=== PATIENT | male | born 2000 | race Caucasian/White ===

== ENCOUNTER → 2019-08-15 10:06 | Outpatient (BNVA) | payer MEDICAID, SELFPAY | PROVIDERS: Family Provider Nurse Practitioner Family; PCP Nurse Practitioner Family; Visit Provider Emergency Medicine | DX: S91.312A Laceration without foreign body, left foot, initial encounter (principal); X58.XXXA Exposure to other specified factors, initial encounter | CPT/HCPCS: 73630 ==

== ENCOUNTER → 2019-12-09 16:52 | Outpatient (BNVA) | payer MEDICAID, SELFPAY | PROVIDERS: Family Provider Nurse Practitioner Family; PCP Nurse Practitioner Family; Visit Provider Emergency Medicine | DX: R39.198 Other difficulties with micturition (principal); R10.9 Unspecified abdominal pain; R31.9 Hematuria, unspecified; R11.0 Nausea | CPT/HCPCS: 81000 ==

== ENCOUNTER → 2020-05-15 10:24 | Outpatient (BNVA) | payer MEDICAID, SELFPAY | PROVIDERS: Family Provider Nurse Practitioner Family; PCP Nurse Practitioner Family; Visit Provider Nurse Practitioner | DX: J06.9 Acute upper respiratory infection, unspecified; R68.89 Other general symptoms and signs; L03.114 Cellulitis of left upper limb | CPT/HCPCS: 87400 ==

== ENCOUNTER 2020-07-07 17:09 | Emergency (ER) | payer MEDICAID, SELFPAY ==
[2020-07-07] VITALS (7 sets, daily range): BP systolic 103–177; BP diastolic 77–98; PULSE 76–83; RESP 15–18; TEMP 36.3; O2SAT 93–98; BMI 33.5
--- NOTE | 2020-07-07 17:51 | CTR_ITS ---
PROCEDURE INFORMATION: Exam: CT Abdomen And Pelvis With Contrast Exam date and time: 07/07/2020 6:04 PM Age: 19 years old Clinical indication: Nausea and vomiting and other: Diarrhea; Abdominal pain; Localized; Right lower quadrant (rlq); Additional info: Rlq pain TECHNIQUE: Imaging protocol: Computed tomography of the abdomen and pelvis with contrast. Radiation optimization: All CT scans at this facility use at least one of these dose optimization techniques: automated exposure control; mA and/or kV adjustment per patient size (includes targeted exams where dose is matched to clinical indication); or iterative reconstruction. Contrast material: OMNI 300; Contrast volume: 95 ml; Contrast route: INTRAVENOUS (IV); COMPARISON: No relevant prior studies available. RADIATION DOSE METRICS: Total DLP (mGy-cm): 1562.6 FINDINGS: Liver: Normal. No mass. Gallbladder and bile ducts: Normal. No calcified stones. No ductal dilation. Pancreas: Normal. No ductal dilation. Spleen: Normal. No splenomegaly. Adrenal glands: Normal. No mass. Kidneys and ureters: Normal. No hydronephrosis. Stomach and bowel: No inflammatory bowel wall thickening. No features of bowel obstruction or perforation. Moderate fecal volume. Appendix: No evidence of appendicitis. Intraperitoneal space: Unremarkable. No free air. No significant fluid collection. Vasculature: Unremarkable. No abdominal aortic aneurysm. Lymph nodes: Unremarkable. No enlarged lymph nodes. Urinary bladder: Unremarkable as visualized. Reproductive: Unremarkable as visualized. Bones/joints: Unremarkable. No acute fracture. Soft tissues: Unremarkable. CT/CT abdomen pelvis w con* [id number] IMPRESSION: No acute pathology in the abdomen or pelvis identified. Radiation Dose CTDIVOL = (mGy): DLP = 1562.6 (mGy-cm)
[2020-07-07] MEDS: morphine 4 mg/mL SDV 1 mL IVP (18:46)
[2020-07-07] MEDS: ondansetron 2 mg/ML SDV 2 mL 4 MG IVP (18:46)
[2020-07-07] MEDS: iohexol 300 mg/mL 100 mL Btl IV (18:54)
[2020-07-07 19:06] LABS: Basophils # 0.1 10^3/uL (0.0-0.1); Basophils % 0.8 %; Eosinophils # 0.3 10^3/uL (0.0-0.8); Eosinophils % 4.2 %; Hematocrit 43.1 % (42.0-52.0); Hemoglobin 14.5 g/dL (11.7-16.6); Lymphocytes # 2.6 10^3/uL (0.8-4.8); Lymphocytes % 38.8 %; Mean Corpuscular HGB Conc 33.6 g/dL (30.0-36.0); Mean Corpuscular Hemoglobin 29.7 pg (28.0-34.0); Mean Corpuscular Volume 88.1 fL (80-94); Monocytes % 15.5 %; Neutrophils # 2.68 10^3/uL (1.8-7.7); Neutrophils % 40.5 %; Nucleated Red Blood Cells % 0 %; Platelet Count 335 10^3/cmm (130-400); Red Blood Count 4.89 10^6/uL (4.1-5.3); Red Cell Distribution Width 12.2 % (12.1-15.1); White Blood Count 6.6 10^3/uL (4.0-10.0)
[2020-07-07] MEDS: fentaNYL 50 mcg/mL INJ 2mL 100 MCG IVP (19:21)
[2020-07-07 19:26] LABS: Lactate (Lactic Acid level) 1.1 mmol/L (0.5-2.2)
[2020-07-07 19:38] LABS: Alanine Aminotransferase 51 U/L (0-41); Albumin Level 4.7 g/dL (3.5-5.2); Alkaline Phosphatase 57 IU/L (40-130); Anion Gap 13.8 (5-19); Aspartate Amino Transferase 26 U/L (0-40); Blood Urea Nitrogen 14 mg/dL (6-20); C Reactive Protein 7.5 mg/L (0.0-4.9); Calcium 9.2 mg/dL (8.5-10.5); Carbon Dioxide 24 mmol/L (22-29); Chloride 102 mmol/L (98-107); Globulin 2.7 g/dL (1.3-4.6); Glomerular Filtration Rate 170.1 mL/min (90-130); Glucose 80 mg/dL (65-115); Lipase 17 U/L (13-60); Osmolality Calculated 281 mOsm/kg (285-295); Potassium 3.8 mmol/L (3.5-5.1); Sodium 136 mmol/L (136-145); Total Bilirubin 0.3 mg/dL (0.15-1.2); Total Protein 7.4 g/dL (6.6-8.7)
--- NOTE | 2020-07-07 20:02 | ED_ITS ---
HPI - Abdominal Pain General: Chief Complaint: Abdominal Pain Stated Complaint: abd pain Source: patient Mode of arrival: ambulatory Limitations: no limitations History of Present Illness: HPI narrative: 19-year-old male who presents to the emergency department with right lower quadrant pain of about 4 days duration. He denies any fever, denies any change in his appetite. He does admits to profuse diarrhea. He went to his primary care provider's office who was concerned that he may have acute appendicitis and so sent him here to be evaluated. MD elicited complaint: abdominal pain Pertinent past history: none Onset (ago): day(s) (4) Pain Consistency: constant Location: RLQ Severity: severe Quality: stabbing Radiation: none Migration to: no migration Exacerbating factors: movement Relieving factors: nothing Associated Symptoms: Reports change in bowel habits, change in stool character and diarrhea; Denies anorexia, belching, bloating, chills, coffee ground emesis, constipation, GI cramping, dyspepsia, dysuria, excessive flatus, fever(s), heartburn, hematochezia, hematuria, hematemesis, fecal incontinence, loose stools, melena, nausea, poor appetite, syncope and vomiting Review of Systems General: Reports: 10 or more systems reviewed and unremarkable except in HPI and below Const: Denies: fever(s) or chills Eyes: Denies: change in vision or blurry vision ENMT: Denies: throat pain, enlarged tonsils, odynophagia, hoarseness, mouth pain or swelling of lips/tongue Card: Denies: syncope Resp: Denies: dyspnea, productive cough or non-productive cough GI: Reports: diarrhea, change in bowel habits and change in stool character; Denies: nausea, vomiting, hematemesis, coffee ground emesis, heartburn, constipation, bloating, GI cramping, belching, excessive flatus, fecal incontinence, hematochezia or melena : Denies: dysuria or hematuria Musc: Denies: neck pain, back pain or extremity swelling Skin/Breast: Denies: rash, pruritus or erythema Neuro: Denies: headache(s), numbness in extremities or weakness in extremities Endo: Denies: polyuria, polydipsia or tired all the time PFSH ED PFSH: Medical History ADHD GERD with apnea Major depression Mild intermittent asthma with (acute) exacerbation Surgical History No pertinent past surgical history Social History Smoking and tobacco status: current every day smoker cigarettes Packs smoked per day: 1 Quit status (tobacco): not considering quitting Second hand smoke exposure: Yes Alcohol intake: never Desire information about alcohol rehabilitation?: No Substance/Drug Use: never Desire information about substance/drug rehabilitation?: No History of recent travel: No Current gender identity: Male Physical Exam Const: COMMON NORMALS: no acute distress, average body habitus, patient oriented x3, no limitations, healthy appearing, alert and well nourished Neck/C-Spine: COMMON NORMALS: no meningeal signs and no JVD Resp: COMMON NORMALS: normal respiratory effort, No retractions, No use of accessory muscles, clear to auscultation bilaterally and percussion normal AUSCULTATION: clear to auscultation bilaterally PERCUSSION: percussion normal Cardio: COMMON NORMALS: no JVD, regular rate, regular rhythm, S1 normal heart sound present, S2 normal heart sound present, No gallops present (Cardio), No clicks present (Cardio), No murmurs present (Cardio), No rub (Cardio) and Peripheral pulses 2+ throughout RATE: regular rate RHYTHM: regular rhythm HEART SOUNDS: S1 normal heart sound present and S2 normal heart sound present PERIPHERAL PULSES: Peripheral pulses 2+ throughout GI: COMMON NORMALS: Normal to inspection, nondistended, normoactive bowel sounds present, Soft to palpation, No hepatosplenomegaly present, no masses and no bruits PALPATION: Yes Soft to palpation, Yes Tenderness to palpation present (GI) Details: RLQ, Yes Guarding due to palpation present (GI) in the RLQ, Yes No hepatosplenomegaly present and No Rebound tenderness present Extremity: COMMON NORMALS: normal to inspection, full ROM, capillary refill normal, no calf tenderness and no pedal edema Neuro: COMMON NORMALS: patient oriented x3 SENSORIUM/ORIENTATION: Yes alert MENINGEAL SIGNS: Yes no meningeal signs Course Reevaluation(s): Reevaluation #1: Discussed his lab and imaging findings with him. Negative for acute findings. We will treat him as a case of acute gastroenteritis. He voiced understanding and is in agreement with the plan. He is however advised to return if his symptoms get any worse. Time: 20:03 Vital Signs: Vital signs: Vital Signs Temperature 97.3 F L 07/07/20 17:45 Pulse Rate 76 07/07/20 20:47 Respiratory Rate 16 07/07/20 19:21 Blood Pressure 134/78 07/07/20 20:47 Pulse Oximetry 97 07/07/20 20:47 MDM - Abdominal Pain MDM Narrative: Medical decision making narrative: 22-year-old male with right lower quadrant pain. There was concern for acute appendicitis, however CT scan was negative for any acute findings. White cell count was also normal. CRP was very minimally elevated. He is discharged home on conservative measures. Medical Records: Attestation: I reviewed the patient's medical records. Lab Data: Attestation: I reviewed the patient's lab results. Labs: Lab Results 07/07/20 07/07/20 07/07/20 Range/Units 18:18 18:18 18:18 WBC 6.6 (4.0-10.0) 10^3/ uL RBC 4.89 (4.1-5.3) 10^6/u L Hgb 14.5 (11.7-16.6) g/dL Hct 43.1 (42.0-52.0) % MCV 88.1 (80-94) fL MCH 29.7 (28.0-34.0) pg MCHC 33.6 (30.0-36.0) g/dL RDW 12.2 (12.1-15.1) % Plt Count 335 (130-400) 10^3/c mm MPV 9.0 (7.4-10.4) fL Neut % (Auto) 40.5 % Lymph % (Auto) 38.8 % [place] % (Auto) 15.5 % Eos % (Auto) 4.2 % Baso % (Auto) 0.8 % Neut # (Auto) 2.68 (1.8-7.7) 10^3/u L Lymph # (Auto) 2.6 (0.8-4.8) 10^3/u L [place] # (Auto) 1.0 H (0.2-0.9) 10^3/u L Eos # (Auto) 0.3 (0.0-0.8) 10^3/u L Baso # (Auto) 0.1 (0.0-0.1) 10^3/u L Nucleated RBC % (a uto) 0 % Nucleated RBCs # 0.0 /100WBC Sodium 136 (136-145) mmol/L Potassium 3.8 (3.5-5.1) mmol/L Chloride 102 (98-107) mmol/L Carbon Dioxide 24 (22-29) mmol/L Anion Gap 13.8 (5-19) BUN 14 (6-20) mg/dL Creatinine 0.6 L (0.7-1.2) mg/dL GFR Calculation 170.1 H (90-130) mL/min Glucose 80 (65-115) mg/dL Calculated Osmolal ity 281 L (285-295) mOsm/k g Lactate 1.1 (0.5-2.2) mmol/L Calcium 9.2 (8.5-10.5) mg/dL Total Bilirubin 0.3 (0.15-1.2) mg/dL AST 26 (0-40) U/L ALT 51 H (0-41) U/L Alkaline Phosphata se 57 (40-130) IU/L C-Reactive Protein 7.5 H (0.0-4.9) mg/L Total Protein 7.4 (6.6-8.7) g/dL Albumin 4.7 (3.5-5.2) g/dL Globulin 2.7 (1.3-4.6) g/dL Lipase 17 (13-60) U/L Urine Color (Yellow) Urine Appearance (CLEAR) Urine pH (5-7) Ur Specific Gravit y (1.005-1.030) Urine Protein (Negative) Urine Glucose (UA) (Normal) Urine Ketones (Negative) Urine Blood (Negative) Urine Nitrate (Negative) Urine Bilirubin (Negative) Urine Urobilinogen (Negative) mg/dL Ur Leukocyte Fransisca ase (Negative) Urine RBC (0-2) /hpf Urine WBC (0-5) /hpf Ur Squamous Epith Cells (0-5) /hpf Amorphous Sediment Urine Bacteria (NONE) /hpf 02/25/21 Range/Units 19:44 WBC (4.0-10.0) 10^3/ uL RBC (4.1-5.3) 10^6/u L Hgb (11.7-16.6) g/dL Hct (42.0-52.0) % MCV (80-94) fL MCH (28.0-34.0) pg MCHC (30.0-36.0) g/dL RDW (12.1-15.1) % Plt Count (130-400) 10^3/c mm MPV (7.4-10.4) fL Neut % (Auto) % Lymph % (Auto) % [place] % (Auto) % Eos % (Auto) % Baso % (Auto) % Neut # (Auto) (1.8-7.7) 10^3/u L Lymph # (Auto) (0.8-4.8) 10^3/u L [place] # (Auto) (0.2-0.9) 10^3/u L Eos # (Auto) (0.0-0.8) 10^3/u L Baso # (Auto) (0.0-0.1) 10^3/u L Nucleated RBC % (a uto) % Nucleated RBCs # /100WBC Sodium (136-145) mmol/L Potassium (3.5-5.1) mmol/L Chloride (98-107) mmol/L Carbon Dioxide (22-29) mmol/L Anion Gap (5-19) BUN (6-20) mg/dL Creatinine (0.7-1.2) mg/dL GFR Calculation (90-130) mL/min Glucose (65-115) mg/dL Calculated Osmolal ity (285-295) mOsm/k g Lactate (0.5-2.2) mmol/L Calcium (8.5-10.5) mg/dL Total Bilirubin (0.15-1.2) mg/dL AST (0-40) U/L ALT (0-41) U/L Alkaline Phosphata se (40-130) IU/L C-Reactive Protein (0.0-4.9) mg/L Total Protein (6.6-8.7) g/dL Albumin (3.5-5.2) g/dL Globulin (1.3-4.6) g/dL Lipase (13-60) U/L Urine Color Yellow (Yellow) Urine Appearance Clear (CLEAR) Urine pH 7 (5-7) Ur Specific Gravit y 1.010 (1.005-1.030) Urine Protein Neg (Negative) Urine Glucose (UA) Norm (Normal) Urine Ketones Negative (Negative) Urine Blood Neg (Negative) Urine Nitrate Negative (Negative) Urine Bilirubin Neg (Negative) Urine Urobilinogen Norm (Negative) mg/dL Ur Leukocyte Fransisca ase Negative (Negative) Urine RBC None (0-2) /hpf Urine WBC None (0-5) /hpf Ur Squamous Epith Cells None (0-5) /hpf Amorphous Sediment Not Reportable Urine Bacteria None (NONE) /hpf Imaging Data ^: CT Abd/Pel: Attestation: I personally reviewed and interpreted this imaging study as follows: Radiologist's impression: [facility] [address] [address] Scan Report Signed Patient: Promise Ordonez #: [id number] : 2000Acct#:[id number] Age/Sex: 19 M Date: 07/07/20 Loc: ERRoom/Bed: Attending Dr: Ordering Provider/Ordering MD: Seferino Cast MD, [facility] Date of Service: 07/07/20 Procedure(s): CT abdomen pelvis w con* [id number] Accession Number(s): [id number] Report Number: [id number] PROCEDURE INFORMATION: Exam: CT Abdomen And Pelvis With Contrast Exam date and time: 07/07/2020 6:04 PM Age: 19 years old Clinical indication: Nausea and vomiting and other: Diarrhea; Abdominal pain; Localized; Right lower quadrant (rlq); Additional info: Rlq pain TECHNIQUE: Imaging protocol: Computed tomography of the abdomen and pelvis with contrast. Radiation optimization: All CT scans at this facility use at least one of these dose optimization techniques: automated exposure control; mA and/or kV adjustment per patient size (includes targeted exams where dose is matched to clinical indication); or iterative reconstruction. Contrast material: OMNI 300; Contrast volume: 95 ml; Contrast route: INTRAVENOUS (IV); COMPARISON: No relevant prior studies available. RADIATION DOSE METRICS: Total DLP (mGy-cm): 1562.6 FINDINGS: Liver: Normal. No mass. Gallbladder and bile ducts: Normal. No calcified stones. No ductal dilation. Pancreas: Normal. No ductal dilation. Spleen: Normal. No splenomegaly. Adrenal glands: Normal. No mass. Kidneys and ureters: Normal. No hydronephrosis. Stomach and bowel: No inflammatory bowel wall thickening. No features of bowel obstruction or perforation. Moderate fecal volume. Appendix: No evidence of appendicitis. Intraperitoneal space: Unremarkable. No free air. No significant fluid collection. Vasculature: Unremarkable. No abdominal aortic aneurysm. Lymph nodes: Unremarkable. No enlarged lymph nodes. Urinary bladder: Unremarkable as visualized. Reproductive: Unremarkable as visualized. Bones/joints: Unremarkable. No acute fracture. Soft tissues: Unremarkable. CT/CT abdomen pelvis w con* [id number] IMPRESSION: No acute pathology in the abdomen or pelvis identified. Radiation Dose CTDIVOL = (mGy): DLP = 1562.6 (mGy-cm) Dictated By:Bradley Fritz Signed By:Elaine Fritz Date/Time:07/07/201911 DD/ 11 Discharge Plan Discharge Patient Disposition: Home Clinical Impression: Gastroenteritis Condition: Stable Prescriptions: [place] 5-325 mg tablet 1 tab PO Q8H Qty: 6 RF: 0 Continued omeprazole 20 mg capsule,delayed release(DR/EC) 20 mg PO DAILY 30 Days Qty: 30 RF: 2 buspirone 5 mg tablet 5 mg PO BID RF: 0 cetirizine 10 mg tablet,chewable 10 mg PO DAILY PRN (Reason: allergy symptoms) Qty: 30 RF: 3 albuterol sulfate [ProAir HFA] 90 mcg/actuation HFA aerosol inhaler See Rx Instructions .ROUTE .COMPLEX Qty: 8.5 RF: 2 sertraline 25 mg tablet 25 mg PO DAILY 30 Days Qty: 30 RF: 0 Anti Nausea Sublingual See Rx Instructions .ROUTE .COMPLEX RF: 0 naproxen 500 mg Tablet 500 mg PO BID RF: 0 lisinopril 10 mg tablet 10 mg PO DAILY@1000 RF: 0 Rexulti 0.5 mg tablet 0.5 mg PO BEDTIME RF: 0 Discharge Orders: Discharge ED (Routine); Ordered 07/07/20 Ordered By: Seferino Cast Referrals: Shiraz Barragan PA [Primary Care Provider] - 1-3 days Discharge Diet: Usual diet Discharge Activity: Increase activity as tolerated Patient Instructions: Gastroenteritis (ED), Opioid Safety Activity Restrictions/Additional Instructions: Return for any new or worsening symptoms. Follow-up with your primary care provider within 3 days. Most diarrhea resolves without intervention, so expect your symptoms to improve within the next few days. Take the pain medicine as required for pain. Coding Level of Care Code ED [employer] for [facility]
[2020-07-07 20:32] LABS: Urine Color Yellow (Yellow)
[2020-07-07 20:33] LABS: Bilirubin Urine Neg (Negative); Blood Urine Neg (Negative); Glucose Urine UA Norm (Normal); Ketones Urine Negative (Negative); Leukocyte Esterase Urine Negative (Negative); Nitrate Urine Negative (Negative); Protein Urine Neg (Negative); Urine Appearance Clear (CLEAR); Urobilinogen Urine Norm (Negative); pH Urine 7 (5-7)
== END 2020-07-07 20:49 | disposition home or self-care (01) ==
PROVIDERS: Physician Assistant; Emergency Provider Family Medicine; PCP Emergency Medicine
DX: K52.9 Noninfective gastroenteritis and colitis, unspecified (principal); F17.210 Nicotine dependence, cigarettes, uncomplicated
CPT/HCPCS: 74177; 80053; 81001; 83605; 83690; 85025; 86140; 96374; 96375; 99283; J2270; J2405; J3010; Q9967

== ENCOUNTER → 2020-07-17 14:39 | Outpatient (BNVA) | payer MEDICAID, SELFPAY | PROVIDERS: PCP Emergency Medicine; Visit Provider Nurse Practitioner Family | DX: I10 Essential (primary) hypertension (principal); F41.9 Anxiety disorder, unspecified; R25.2 Cramp and spasm | CPT/HCPCS: 81000; 82043 ==

== ENCOUNTER 2020-08-07 14:33 | Emergency (ER) | payer MEDICAID, SELFPAY ==
[2020-08-07 15:05] VITALS: BP 160/75; PULSE 89; RESP 18; TEMP 36.9; O2SAT 98; BMI 33.5
--- NOTE | 2020-08-07 15:18 | ED_ITS ---
HPI - Male Genitourinary General: Chief complaint: Urogenital-Male Stated complaint: swelling in groin Time Seen by Provider: 08/07/20 14:44 PFS ED PFSH: Medical History ADHD GERD with apnea Major depression Mild intermittent asthma with (acute) exacerbation Surgical History No pertinent past surgical history Social History Smoking and tobacco status: current every day smoker cigarettes Packs smoked per day: 1 Quit status (tobacco): not considering quitting Second hand smoke exposure: Yes Alcohol intake: never Desire information about alcohol rehabilitation?: No Desire information about substance/drug rehabilitation?: No History of recent travel: No Current gender identity: Male Course Vital Signs: Vital signs: Vital Signs Temperature 98.5 F 08/07/20 15:05 Pulse Rate 89 08/07/20 15:05 Respiratory Rate 18 08/07/20 15:05 Blood Pressure 160/75 08/07/20 15:05 Pulse Oximetry 98 08/07/20 15:05 Discharge Plan Discharge Prescriptions: No Action omeprazole 20 mg capsule,delayed release(DR/EC) 20 mg PO DAILY 30 Days Qty: 30 RF: 2 buspirone 5 mg tablet 5 mg PO BID RF: 0 lisinopril 10 mg tablet 10 mg PO DAILY@1000 Qty: 90 RF: 0 sertraline 50 mg tablet 50 mg PO DAILY Qty: 90 RF: 0 Rexulti 0.5 mg tablet 0.5 mg PO BEDTIME Qty: 30 RF: 0 chlorzoxazone 500 mg tablet 500 mg PO TID 10 Days Qty: 30 RF: 0 acetaminophen-codeine 300-30 mg tablet 1 tab PO Q6H PRN (Reason: pain) Qty: 24 RF: 0 hydrocodone-acetaminophen 7.5-325 mg tablet 1 tab PO Q4H PRN (Reason: pain) 5 Days Qty: 20 RF: 0 cetirizine 10 mg tablet,chewable 10 mg PO DAILY PRN (Reason: allergy symptoms) Qty: 30 RF: 3 albuterol sulfate [ProAir HFA] 90 mcg/actuation HFA aerosol inhaler See Rx Instructions .ROUTE .COMPLEX Qty: 8.5 RF: 2 Anti Nausea Sublingual See Rx Instructions .ROUTE .COMPLEX RF: 0 naproxen 500 mg Tablet 500 mg PO BID RF: 0 Coding Level of Care Code ED [facility] for [facility]
--- NOTE | 2020-08-07 15:19 | ED_ITS ---
Documented by User: BABITA Tovar 08/09/20 07:07 HPI - Abdominal Pain General: Chief Complaint: Urogenital-Male Stated Complaint: swelling in groin Time Seen by Provider: 08/07/20 14:44 Source: patient Mode of arrival: ambulatory Limitations: no limitations History of Present Illness: HPI narrative: Patient is a 19-year-old male who presents to ED today with a complaint of bilateral groin pain and swelling. Patient states pain initially began last Saturday after lifting something heavy at work. Patient tells me he heard a pop in his lower groin and abdomen and has been having pain since. Patient states he has received evaluation in [place] as well as at [facility] clinic in [place] by Shiraz Barragan PA-C twice. Patient states pain continues to worsen. He has had intermittent episodes of vomiting that he attributes to pain. Patient states he is still able to defecate. He is passing gas. No fevers. He has an appointment with general surgery for tomorrow. MD elicited complaint: abdominal pain Onset (ago): day(s) Pain Consistency: constant Location: Groin Severity: severe Quality: sharp Radiation: none Migration to: no migration Exacerbating factors: movement and other Relieving factors: nothing Associated Symptoms: Reports change in stool character, nausea and vomiting; Denies chills, dysuria, hematochezia, hematemesis and melena Review of Systems Const: Denies: fever(s), chills, body aches, fatigue or malaise Card: Denies: chest pain Resp: Denies: dyspnea GI: Reports: abdominal pain, nausea, vomiting and change in stool character; Denies: hematemesis, rectal pain, hematochezia or melena : Reports: genital pain and scrotal swelling; Denies: flank pain, difficulty urinating, dysuria, urinary frequency, urinary urgency or urinary hesitancy Musc: Denies: neck pain or back pain Skin/Breast: Denies: rash Neuro: Denies: headache(s) [facility] ED PFSH: Medical History ADHD GERD with apnea Major depression Mild intermittent asthma with (acute) exacerbation Surgical History No pertinent past surgical history Social History Smoking and tobacco status: current every day smoker cigarettes Packs smoked per day: 1 Quit status (tobacco): not considering quitting Second hand smoke exposure: Yes Alcohol intake: never Desire information about alcohol rehabilitation?: No Desire information about substance/drug rehabilitation?: No History of recent travel: No Current gender identity: Male Physical Exam Const: COMMON NORMALS: no acute distress, patient oriented x3, no limitations and alert GENERAL APPEARANCE: cooperative ORIENTATION/CONSCIOUSNESS: Yes awake, Yes oriented to person, Yes oriented to place and Yes oriented to time Resp: COMMON NORMALS: normal respiratory effort and clear to auscultation bilaterally AUSCULTATION: clear to auscultation bilaterally Cardio: COMMON NORMALS: regular rate and regular rhythm RATE: regular rate RHYTHM: regular rhythm GI: COMMON NORMALS: Normal to inspection, nondistended, normoactive bowel sounds present, Soft to palpation, No hepatosplenomegaly present and no masses PALPATION: Yes Soft to palpation, Yes Tenderness to palpation present (GI) (diffuse abdominal pain-more so to lower/groins), Yes Guarding due to palpation present (GI), Yes No hepatosplenomegaly present and Yes Hernia present (bilateral inguinal hernias; pt does not tolerate exam well) : COMMON NORMALS: Yes no CVA tenderness BLADDER/KIDNEY EXAM: Yes no CVA tenderness PENIS: normal penis MEATUS: meatus normal SCROTUM: Yes testes descended bilaterally, Yes inguinal hernia (suspect this but pt does not tolerate hernia evaluation secondary to pain), Yes Scrotal tenderness present and Yes other (bilateral groin pain; he reports scrotal swelling; no redness/warmth) TESTES: Yes testicular lie normal Back/Pelvis: COMMON NORMALS: no CVA tenderness Neuro: COMMON NORMALS: patient oriented x3 SENSORIUM/ORIENTATION: Yes alert, Yes oriented to person, Yes oriented to place and Yes oriented to time Skin: COMMON NORMALS: no rashes or lesions noted GENERAL SKIN EXAM: no rashes or lesions noted Course Vital Signs: Vital signs: Vital Signs Temperature 98.5 F 08/07/20 15:05 Pulse Rate 87 08/07/20 17:49 Respiratory Rate 16 08/07/20 17:10 Blood Pressure 160/75 08/07/20 15:05 Pulse Oximetry 93 08/07/20 17:49 MDM - Abdominal Pain MDM Narrative: Medical decision making narrative: Care transferred to [facility] pending CT results. Lab Data: Labs: Lab Results 08/07/20 08/07/20 08/07/20 Range/Units 16:21 16:30 16:30 WBC 7.6 (4.0-10.0) 10^3/ uL RBC 5.13 (4.1-5.3) 10^6/u L Hgb 15.3 (11.7-16.6) g/dL Hct 45.4 (42.0-52.0) % MCV 88.5 (80-94) fL MCH 29.8 (28.0-34.0) pg MCHC 33.7 (30.0-36.0) g/dL RDW 12.3 (12.1-15.1) % Plt Count 354 (130-400) 10^3/c mm MPV 9.1 (7.4-10.4) fL Neut % (Auto) 70.4 % Lymph % (Auto) 19.9 % [place] % (Auto) 7.4 % Eos % (Auto) 0.7 % Baso % (Auto) 0.5 % Neut # (Auto) 5.34 (1.8-7.7) 10^3/u L Lymph # (Auto) 1.5 (0.8-4.8) 10^3/u L [place] # (Auto) 0.6 (0.2-0.9) 10^3/u L Eos # (Auto) 0.1 (0.0-0.8) 10^3/u L Baso # (Auto) 0.0 (0.0-0.1) 10^3/u L Nucleated RBC % (a uto) 0 % Nucleated RBCs # 0.0 /100WBC Sodium 137 (136-145) mmol/L Potassium 4.6 (3.5-5.1) mmol/L Chloride 102 (98-107) mmol/L Carbon Dioxide 24 (22-29) mmol/L Anion Gap 15.6 (5-19) BUN 17 (6-20) mg/dL Creatinine 0.6 L (0.7-1.2) mg/dL GFR Calculation 170.1 H (90-130) mL/min Glucose 93 (65-115) mg/dL Calculated Osmolal ity 285 (285-295) mOsm/k g Lactic Acid (0.5-2.2) mmol/L Calcium 9.1 (8.5-10.5) mg/dL Total Bilirubin 0.2 (0.15-1.2) mg/dL AST 21 (0-40) U/L ALT 46 H (0-41) U/L Alkaline Phosphata se 54 (40-130) IU/L Total Protein 7.4 (6.6-8.7) g/dL Albumin 4.7 (3.5-5.2) g/dL Globulin 2.7 (1.3-4.6) g/dL Urine Color Straw (Yellow) Urine Appearance Clear (CLEAR) Urine pH 6.5 (5-7) Ur Specific Gravit y 1.010 (1.005-1.030) Urine Protein Neg (Negative) Urine Glucose (UA) Norm (Normal) Urine Ketones Negative (Negative) Urine Blood Neg (Negative) Urine Nitrate Negative (Negative) Urine Bilirubin Neg (Negative) Urine Urobilinogen Norm (Negative) mg/dL Ur Leukocyte Fransisca ase Negative (Negative) 08/07/20 Range/Units 16:30 WBC (4.0-10.0) 10^3/ uL RBC (4.1-5.3) 10^6/u L Hgb (11.7-16.6) g/dL Hct (42.0-52.0) % MCV (80-94) fL MCH (28.0-34.0) pg MCHC (30.0-36.0) g/dL RDW (12.1-15.1) % Plt Count (130-400) 10^3/c mm MPV (7.4-10.4) fL Neut % (Auto) % Lymph % (Auto) % [place] % (Auto) % Eos % (Auto) % Baso % (Auto) % Neut # (Auto) (1.8-7.7) 10^3/u L Lymph # (Auto) (0.8-4.8) 10^3/u L [place] # (Auto) (0.2-0.9) 10^3/u L Eos # (Auto) (0.0-0.8) 10^3/u L Baso # (Auto) (0.0-0.1) 10^3/u L Nucleated RBC % (a uto) % Nucleated RBCs # /100WBC Sodium (136-145) mmol/L Potassium (3.5-5.1) mmol/L Chloride (98-107) mmol/L Carbon Dioxide (22-29) mmol/L Anion Gap (5-19) BUN (6-20) mg/dL Creatinine (0.7-1.2) mg/dL GFR Calculation (90-130) mL/min Glucose (65-115) mg/dL Calculated Osmolal ity (285-295) mOsm/k g Lactic Acid 1.7 (0.5-2.2) mmol/L Calcium (8.5-10.5) mg/dL Total Bilirubin (0.15-1.2) mg/dL AST (0-40) U/L ALT (0-41) U/L Alkaline Phosphata se (40-130) IU/L Total Protein (6.6-8.7) g/dL Albumin (3.5-5.2) g/dL Globulin (1.3-4.6) g/dL Urine Color (Yellow) Urine Appearance (CLEAR) Urine pH (5-7) Ur Specific Gravit y (1.005-1.030) Urine Protein (Negative) Urine Glucose (UA) (Normal) Urine Ketones (Negative) Urine Blood (Negative) Urine Nitrate (Negative) Urine Bilirubin (Negative) Urine Urobilinogen (Negative) mg/dL Ur Leukocyte Fransisca ase (Negative) Discharge Plan Discharge Patient Disposition: Home Clinical Impression: Strain of muscle, fascia and tendon of pelvis, initial encounter, Hydrocele in adult, Acute mesenteric adenitis Condition: Stable Prescriptions: New hydrocodone-acetaminophen 5-325 mg tablet 1 tab PO Q4H PRN (Reason: pain) Qty: 7 RF: 0 No Action omeprazole 20 mg capsule,delayed release(DR/EC) 20 mg PO DAILY 30 Days Qty: 30 RF: 2 buspirone 5 mg tablet 5 mg PO BID RF: 0 sertraline 50 mg tablet 50 mg PO DAILY Qty: 90 RF: 0 Rexulti 0.5 mg tablet 0.5 mg PO BEDTIME Qty: 30 RF: 0 chlorzoxazone 500 mg tablet 500 mg PO TID 10 Days Qty: 30 RF: 0 acetaminophen-codeine 300-30 mg tablet 1 tab PO Q6H PRN (Reason: pain) Qty: 24 RF: 0 lisinopril 10 mg tablet 10 mg PO DAILY@1000 Qty: 90 RF: 0 cetirizine 10 mg tablet,chewable 10 mg PO DAILY PRN (Reason: allergy symptoms) Qty: 30 RF: 3 albuterol sulfate [ProAir HFA] 90 mcg/actuation HFA aerosol inhaler See Rx Instructions .ROUTE .COMPLEX Qty: 8.5 RF: 2 Anti Nausea Sublingual See Rx Instructions .ROUTE .COMPLEX RF: 0 naproxen 500 mg Tablet 500 mg PO BID RF: 0 Discharge Orders: Discharge ED (Routine); Ordered 08/07/20 Ordered By: Aury Becerra Referrals: Shiraz Barragan PA [Primary Care Provider] - Discharge Diet: Usual diet Discharge Activity: Limit activity as instructed Patient Instructions: Muscle Strain (ED), Hydrocele (ED), Abdominal Pain (ED), Opioid Safety Activity Restrictions/Additional Instructions: Follow-up with [facility] surgical services as scheduled tomorrow without fail, use hydrocodone sparingly, continue ibuprofen 600 mg 3 times daily Return to the emergency department if you develop inability to urinate, wors ening pelvic pain or other concerning symptoms; do not lift greater than 5 pounds until cleared by surgical services Return to the emergency department if you develop vomiting, blood in your stool, worsening pelvic pain or other concerning symptoms Cool compresses to the lower abdominal area, area of pain, never apply ice directly to the skin, keep the testicles elevated, testicular support such as jockstrap may help with pain. CT scan of the abdomen pelvis has been requested from [facility], copy of the report and films were requested today. Surgeon will be able to review CT scan of completed at [facility] and scan completed today. 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 Chg Fwd Exam Detailed Documented by User: MARISEL Nagy 08/07/20 21:27 HPI - Abdominal Pain General: Chief Complaint: Urogenital-Male Stated Complaint: swelling in groin Time Seen by Provider: 08/07/20 14:44 [facility] ED PFSH: Medical History ADHD GERD with apnea Major depression Mild intermittent asthma with (acute) exacerbation Surgical History No pertinent past surgical history Social History Smoking and tobacco status: current every day smoker cigarettes Packs smoked per day: 1 Quit status (tobacco): not considering quitting Second hand smoke exposure: Yes Alcohol intake: never Desire information about alcohol rehabilitation?: No Desire information about substance/drug rehabilitation?: No History of recent travel: No Current gender identity: Male Course Vital Signs: Vital signs: Vital Signs Temperature 98.5 F 08/07/20 15:05 Pulse Rate 87 08/07/20 17:49 Respiratory Rate 16 08/07/20 17:10 Blood Pressure 160/75 08/07/20 15:05 Pulse Oximetry 93 08/07/20 17:49 MDM - Abdominal Pain MDM Narrative: Medical decision making narrative: 19-year-old male patient presents to the emergency room with lower pelvic and testicular pain. He was recently evaluated in the emergency department at [facility] prior to his visit here at [facility]. CT scan from [facility] revealed possible mesent bren lymphadenitis, with scattered lymph adenopathy in the abdomen, there was mention concerning of lymphoma. He has an appointment tomorrow with Dr. Meadows due to abdominal pain. Ultrasound of the testicles completed at [facility] revealed hydrocele of the testes. CT scan completed today did not reveal acute abnormalities. He was provided pain medication here in the ED, pain improved. He was provided an additional prescription of hydrocodone for pain control. I advised symptomatic treatment for hydrocele such as keeping the testes elevated and warm moist compresses. CT report was reviewed by me from [facility]. [facility] will purge CT abdomen pelvis and testicular ultrasound with results so viewing can be completed by Dr. Coronel. Differential Diagnosis: Differential diagnosis abdominal pain: Likely abdominal pain, acute appendicitis and constipation Lab Data: Labs: Lab Results 08/07/20 08/07/20 08/07/20 Range/Units 16:21 16:30 16:30 WBC 7.6 (4.0-10.0) 10^3/ uL RBC 5.13 (4.1-5.3) 10^6/u L Hgb 15.3 (11.7-16.6) g/dL Hct 45.4 (42.0-52.0) % MCV 88.5 (80-94) fL MCH 29.8 (28.0-34.0) pg MCHC 33.7 (30.0-36.0) g/dL RDW 12.3 (12.1-15.1) % Plt Count 354 (130-400) 10^3/c mm MPV 9.1 (7.4-10.4) fL Neut % (Auto) 70.4 % Lymph % (Auto) 19.9 % [place] % (Auto) 7.4 % Eos % (Auto) 0.7 % Baso % (Auto) 0.5 % Neut # (Auto) 5.34 (1.8-7.7) 10^3/u L Lymph # (Auto) 1.5 (0.8-4.8) 10^3/u L [place] # (Auto) 0.6 (0.2-0.9) 10^3/u L Eos # (Auto) 0.1 (0.0-0.8) 10^3/u L Baso # (Auto) 0.0 (0.0-0.1) 10^3/u L Nucleated RBC % (a uto) 0 % Nucleated RBCs # 0.0 /100WBC Sodium 137 (136-145) mmol/L Potassium 4.6 (3.5-5.1) mmol/L Chloride 102 (98-107) mmol/L Carbon Dioxide 24 (22-29) mmol/L Anion Gap 15.6 (5-19) BUN 17 (6-20) mg/dL Creatinine 0.6 L (0.7-1.2) mg/dL GFR Calculation 170.1 H (90-130) mL/min Glucose 93 (65-115) mg/dL Calculated Osmolal ity 285 (285-295) mOsm/k g Lactic Acid (0.5-2.2) mmol/L Calcium 9.1 (8.5-10.5) mg/dL Total Bilirubin 0.2 (0.15-1.2) mg/dL AST 21 (0-40) U/L ALT 46 H (0-41) U/L Alkaline Phosphata se 54 (40-130) IU/L Total Protein 7.4 (6.6-8.7) g/dL Albumin 4.7 (3.5-5.2) g/dL Globulin 2.7 (1.3-4.6) g/dL Urine Color Straw (Yellow) Urine Appearance Clear (CLEAR) Urine pH 6.5 (5-7) Ur Specific Gravit y 1.010 (1.005-1.030) Urine Protein Neg (Negative) Urine Glucose (UA) Norm (Normal) Urine Ketones Negative (Negative) Urine Blood Neg (Negative) Urine Nitrate Negative (Negative) Urine Bilirubin Neg (Negative) Urine Urobilinogen Norm (Negative) mg/dL Ur Leukocyte Fransisca ase Negative (Negative) 08/07/20 Range/Units 16:30 WBC (4.0-10.0) 10^3/ uL RBC (4.1-5.3) 10^6/u L Hgb (11.7-16.6) g/dL Hct (42.0-52.0) % MCV (80-94) fL MCH (28.0-34.0) pg MCHC (30.0-36.0) g/dL RDW (12.1-15.1) % Plt Count (130-400) 10^3/c mm MPV (7.4-10.4) fL Neut % (Auto) % Lymph % (Auto) % [place] % (Auto) % Eos % (Auto) % Baso % (Auto) % Neut # (Auto) (1.8-7.7) 10^3/u L Lymph # (Auto) (0.8-4.8) 10^3/u L [place] # (Auto) (0.2-0.9) 10^3/u L Eos # (Auto) (0.0-0.8) 10^3/u L Baso # (Auto) (0.0-0.1) 10^3/u L Nucleated RBC % (a uto) % Nucleated RBCs # /100WBC Sodium (136-145) mmol/L Potassium (3.5-5.1) mmol/L Chloride (98-107) mmol/L Carbon Dioxide (22-29) mmol/L Anion Gap (5-19) BUN (6-20) mg/dL Creatinine (0.7-1.2) mg/dL GFR Calculation (90-130) mL/min Glucose (65-115) mg/dL Calculated Osmolal ity (285-295) mOsm/k g Lactic Acid 1.7 (0.5-2.2) mmol/L Calcium (8.5-10.5) mg/dL Total Bilirubin (0.15-1.2) mg/dL AST (0-40) U/L ALT (0-41) U/L Alkaline Phosphata se (40-130) IU/L Total Protein (6.6-8.7) g/dL Albumin (3.5-5.2) g/dL Globulin (1.3-4.6) g/dL Urine Color (Yellow) Urine Appearance (CLEAR) Urine pH (5-7) Ur Specific Gravit y (1.005-1.030) Urine Protein (Negative) Urine Glucose (UA) (Normal) Urine Ketones (Negative) Urine Blood (Negative) Urine Nitrate (Negative) Urine Bilirubin (Negative) Urine Urobilinogen (Negative) mg/dL Ur Leukocyte Fransisca ase (Negative) Imaging Data ^: CT Abd/Pel: Radiologist's impression: [address] [address] [address] Scan Report Signed Patient: Ted Ordonez Unit #: [id number] : 2000 Age/Sex: 19 / M ADM Date: 08/07/20 Loc: ER Room/Bed: Attending Dr: Ordering Provider/Ordering MD: Darya Jones Date of Service: 08/07/20 Procedure(s): CT abdomen pelvis w con* [id number] Accession Number(s): [id number] Report Number: [id number] PROCEDURE INFORMATION: Exam: CT Abdomen And Pelvis With Contrast Exam date and time: 08/07/2020 3:43 PM Age: 19 years old Clinical indication: Abdominal pain; Localized; Patient HX: C/O lower abd/groin pain; Additional info: Bilateral inguinal hernias; Diffuse abdominal pain TECHNIQUE: Imaging protocol: Computed tomography of the abdomen and pelvis with contrast. Radiation optimization: All CT scans at this facility use at least one of these dose optimization techniques: automated exposure control; mA and/or kV adjustment per patient size (includes targeted exams where dose is matched to clinical indication); or iterative reconstruction. Contrast material: OMNI 300; Contrast volume: 95 ml; Contrast route: INTRAVENOUS (IV); COMPARISON: CT abdomen pelvis w con* [id number] 07/07/2020 7:08 PM RADIATION DOSE METRICS: Total DLP (mGy-cm): 1981.38 FINDINGS: Liver: Normal. No mass. Gallbladder and bile ducts: Normal. No calcified stones. No ductal dilation. Pancreas: Normal. No ductal dilation. Spleen: Normal. No splenomegaly. Adrenal glands: Normal. No mass. Kidneys and ureters: Normal. No hydronephrosis. Stomach and bowel: Unremarkable. No obstruction. No mucosal thickening. Appendix: No evidence of appendicitis. Intraperitoneal space: Unremarkable. No free air. No significant fluid collection. Vasculature: Unremarkable. No abdominal aortic aneurysm. Lymph nodes: Unremarkable. No enlarged lymph nodes. Urinary bladder: Unremarkable as visualized. Reproductive: Unremarkable as visualized. Bones/joints: Unremarkable. No acute fracture. Soft tissues: Unremarkable. CT/CT abdomen pelvis w con* [id number] IMPRESSION: 1. No acute findings. 2. No change from prior. Radiation Dose CTDIVOL = (mGy): DLP = 1981.38 (mGy-cm) Dictated By: Bradley Fritz Signed By: Bradley Fritz Signed Date/Time: 08/07/20 3905 Discharge Plan Discharge Patient Disposition: Home Clinical Impression: Strain of muscle, fascia and tendon of pelvis, initial encounter, Hydrocele in adult, Acute mesenteric adenitis Condition: Stable Prescriptions: New hydrocodone-acetaminophen 5-325 mg tablet 1 tab PO Q4H PRN (Reason: pain) Qty: 7 RF: 0 No Action omeprazole 20 mg capsule,delayed release(DR/EC) 20 mg PO DAILY 30 Days Qty: 30 RF: 2 buspirone 5 mg tablet 5 mg PO BID RF: 0 sertraline 50 mg tablet 50 mg PO DAILY Qty: 90 RF: 0 Rexulti 0.5 mg tablet 0.5 mg PO BEDTIME Qty: 30 RF: 0 chlorzoxazone 500 mg tablet 500 mg PO TID 10 Days Qty: 30 RF: 0 acetaminophen-codeine 300-30 mg tablet 1 tab PO Q6H PRN (Reason: pain) Qty: 24 RF: 0 lisinopril 10 mg tablet 10 mg PO DAILY@1000 Qty: 90 RF: 0 cetirizine 10 mg tablet,chewable 10 mg PO DAILY PRN (Reason: allergy symptoms) Qty: 30 RF: 3 albuterol sulfate [ProAir HFA] 90 mcg/actuation HFA aerosol inhaler See Rx Instructions .ROUTE .COMPLEX Qty: 8.5 RF: 2 Anti Nausea Sublingual See Rx Instructions .ROUTE .COMPLEX RF: 0 naproxen 500 mg Tablet 500 mg PO BID RF: 0 Discharge Orders: Discharge ED (Routine); Ordered 08/07/20 Ordered By: Aury Becerra Referrals: Shiraz Barragan PA [Primary Care Provider] - Discharge Diet: Usual diet Discharge Activity: Limit activity as instructed Patient Instructions: Muscle Strain (ED), Hydrocele (ED), Abdominal Pain (ED), Opioid Safety Activity Restrictions/Additional Instructions: Follow-up with [facility] surgical services as scheduled tomorrow without fail, use hydrocodone sparingly, continue ibuprofen 600 mg 3 times daily Return to the emergency department if you develop inability to urinate, worsening pelvic pain or other concerning symptoms; do not lift greater than 5 pounds until cleared by surgical services Return to the emergency department if you develop vomiting, blood in your stool, worsening pelvic pain or other concerning symptoms Cool compresses to the lower abdominal area, area of pain, never apply ice directly to the skin, keep the testicles elevated, testicular support such as jockstrap may help with pain. CT scan of the abdomen pelvis has been requested from [facility], copy of the report and films were requested today. Surgeon will be able to review CT scan of completed at [facility] and scan completed today. 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
--- NOTE | 2020-08-07 15:56 | PC.NURSE ---
Read and agree with assessment
[2020-08-07 16:23] LABS: Add Urine Microscopic? NO
[2020-08-07] MEDS: sodium chloride 0.9% 1,000 ML 999 ML IV (16:28)
[2020-08-07 16:29] VITALS: RESP 16
[2020-08-07] MEDS: ondansetron 2 mg/ML SDV 2 mL 4 MG IVP (16:29)
[2020-08-07] MEDS: morphine 4 mg/mL SDV 1 mL IVP (16:29)
[2020-08-07 16:42] LABS: Bilirubin Urine Neg (Negative); Blood Urine Neg (Negative); Glucose Urine UA Norm (Normal); Ketones Urine Negative (Negative); Nitrate Urine Negative (Negative); Protein Urine Neg (Negative); Urine Appearance Clear (CLEAR); Urine Color Straw (Yellow); pH Urine 6.5 (5-7)
[2020-08-07] MEDS: iohexol 300 mg/mL 100 mL Btl IV (16:42)
[2020-08-07 16:43] LABS: Leukocyte Esterase Urine Negative (Negative); Urobilinogen Urine Norm (Negative)
[2020-08-07 16:45] LABS: Basophils % 0.5 %; Eosinophils # 0.1 10^3/uL (0.0-0.8); Eosinophils % 0.7 %; Hematocrit 45.4 % (42.0-52.0); Hemoglobin 15.3 g/dL (11.7-16.6); Lymphocytes # 1.5 10^3/uL (0.8-4.8); Lymphocytes % 19.9 %; Mean Corpuscular HGB Conc 33.7 g/dL (30.0-36.0); Mean Corpuscular Hemoglobin 29.8 pg (28.0-34.0); Mean Corpuscular Volume 88.5 fL (80-94); Mean Platelet Volume 9.1 fL (7.4-10.4); Monocytes # 0.6 10^3/uL (0.2-0.9); Monocytes % 7.4 %; Neutrophils # 5.34 10^3/uL (1.8-7.7); Neutrophils % 70.4 %; Nucleated Red Blood Cells % 0 %; Platelet Count 354 10^3/cmm (130-400); Red Blood Count 5.13 10^6/uL (4.1-5.3); Red Cell Distribution Width 12.3 % (12.1-15.1); White Blood Count 7.6 10^3/uL (4.0-10.0)
[2020-08-07 16:58] LABS: Alanine Aminotransferase 46 U/L (0-41); Albumin Level 4.7 g/dL (3.5-5.2); Alkaline Phosphatase 54 IU/L (40-130); Anion Gap 15.6 (5-19); Aspartate Amino Transferase 21 U/L (0-40); Blood Urea Nitrogen 17 mg/dL (6-20); Calcium 9.1 mg/dL (8.5-10.5); Carbon Dioxide 24 mmol/L (22-29); Chloride 102 mmol/L (98-107); Globulin 2.7 g/dL (1.3-4.6); Glomerular Filtration Rate 170.1 mL/min (90-130); Glucose 93 mg/dL (65-115); Lactic Sepsis W/Reflex 1.7 mmol/L (0.5-2.2); Osmolality Calculated 285 mOsm/kg (285-295); Potassium 4.6 mmol/L (3.5-5.1); Sodium 137 mmol/L (136-145); Total Bilirubin 0.2 mg/dL (0.15-1.2); Total Protein 7.4 g/dL (6.6-8.7)
[2020-08-07] MEDS: HYDROmorphone 1 mg/mL INJ 1 mL 0.5 MG IVP (17:06)
[2020-08-07 17:10] VITALS: PULSE 77; RESP 16; O2SAT 96
[2020-08-07] MEDS: HYDROcodone-acetaminophen 5-325 mg Tablet 1 TAB PO (17:43)
[2020-08-07 17:49] VITALS: PULSE 87; O2SAT 93
== END 2020-08-07 17:51 | disposition home or self-care (01) ==
PROVIDERS: Physician Assistant; Emergency Provider Nurse Practitioner Family; PCP Emergency Medicine
DX: S39.013A Strain of muscle, fascia and tendon of pelvis, initial encounter (principal); N43.3 Hydrocele, unspecified; I88.0 Nonspecific mesenteric lymphadenitis; F17.210 Nicotine dependence, cigarettes, uncomplicated; X50.0XXA Overexertion from strenuous movement or load, initial encounter
CPT/HCPCS: 74177; 80053; 81003; 83605; 85025; 96361; 96374; 96375; 99284; J1170; J2270; J2405; J7030; Q9967

== ENCOUNTER 2020-08-27 21:39 | Emergency (ER) | payer MEDICAID, SELFPAY ==
[2020-08-27 21:52] VITALS: BP 161/92; PULSE 101; RESP 18; TEMP 35.8; O2SAT 100; BMI 34.2
--- NOTE | 2020-08-27 21:58 | ECG_ITS ---
[facility] Test Date: 2020-08-27 Pat Name: Ted Ordonez Department: Room: Gender: Male [employer] Officer: : 2000 Requested By: Hanna Patel Order Number: [id number] Joaquin MD: Kaylee Gonzalez M.D. Measurements Intervals [place] Rate: 95 P: 2 MS: 133 QRS: 28 QRSD: 94 T: 50 QT: 343 QTc: 432 Interpretive Statements SINUS RHYTHM NONSPECIFIC T-WAVE ABNORMALITY Compared to ECG 04/10/2017 14:11:32 T-wave abnormality now present Sinus arrhythmia no longer present Electronically Signed On 08-28-2020 10:27:51 CDT by Kaylee Gonzalez M.D. [id number]
--- NOTE | 2020-08-27 22:11 | CTR_ITS ---
PROCEDURE INFORMATION: Exam: CT Head Without Contrast Exam date and time: 08/27/2020 10:22 PM Age: 19 years old Clinical indication: Syncope and collapse; Patient HX: Syncope w fall from standing; Additional info: Head injury TECHNIQUE: Imaging protocol: Computed tomography of the head without contrast. Radiation optimization: All CT scans at this facility use at least one of these dose optimization techniques: automated exposure control; mA and/or kV adjustment per patient size (includes targeted exams where dose is matched to clinical indication); or iterative reconstruction. COMPARISON: No relevant prior studies available. RADIATION DOSE METRICS: Total DLP (mGy-cm): 877.91 FINDINGS: Brain: Normal. No hemorrhage. Unremarkable white matter. No mass effect. Cerebral ventricles: No ventriculomegaly. Bones/joints: Unremarkable. No acute fracture. Paranasal sinuses: Visualized sinuses are unremarkable. No fluid levels. Mastoid air cells: Visualized mastoid air cells are well aerated. Soft tissues: Unremarkable. CT/CT head wo con* [id number] IMPRESSION: No acute intracranial abnormality. Radiation Dose CTDIVOL = (mGy): DLP = 877.91 (mGy-cm)
--- NOTE | 2020-08-27 22:18 | CTR_ITS ---
PROCEDURE INFORMATION: Exam: CT Lumbar Spine Without Contrast Exam date and time: 08/27/2020 10:22 PM Age: 19 years old Clinical indication: Injury or trauma; Blunt trauma (contusions or hematomas); Patient HX: Syncope w fall from standing C/O lbp TECHNIQUE: Imaging protocol: Computed tomography images of the lumbar spine without contrast. Radiation optimization: All CT scans at this facility use at least one of these dose optimization techniques: automated exposure control; mA and/or kV adjustment per patient size (includes targeted exams where dose is matched to clinical indication); or iterative reconstruction. COMPARISON: No relevant prior studies available. RADIATION DOSE METRICS: Total DLP (mGy-cm): 2357.41 FINDINGS: Vertebrae: No acute fracture. Normal alignment. Discs/Spinal canal/Neural foramina: No significant disc protrusion. No severe spinal canal stenosis. No significant neural foraminal narrowing. Soft tissues: Unremarkable. CT/CT lumbar spine wo con* [id number] IMPRESSION: No acute findings. Radiation Dose CTDIVOL = (mGy): DLP = 2357.41 (mGy-cm)
--- NOTE | 2020-08-27 22:18 | XRR_ITS ---
PROCEDURE INFORMATION: Exam: XR Right Knee Exam date and time: 08/27/2020 10:26 PM Age: 19 years old Clinical indication: Injury or trauma; Fall; Blunt trauma; Knee; Right TECHNIQUE: Imaging protocol: XR Right knee. Views: 3 views. COMPARISON: No relevant prior studies available. FINDINGS: Bones/joints: Normal. Soft tissues: Normal. XR/XR knee RT 3V* [id number] IMPRESSION: No acute findings.
--- NOTE | 2020-08-27 22:18 | CTR_ITS ---
PROCEDURE INFORMATION: Exam: CT Cervical Spine Without Contrast Exam date and time: 08/27/2020 10:22 PM Age: 19 years old Clinical indication: Injury or trauma; Blunt trauma; Patient HX: Syncope w fall from standing C/O neck pain TECHNIQUE: Imaging protocol: Computed tomography images of the cervical spine without contrast. Radiation optimization: All CT scans at this facility use at least one of these dose optimization techniques: automated exposure control; mA and/or kV adjustment per patient size (includes targeted exams where dose is matched to clinical indication); or iterative reconstruction. COMPARISON: No relevant prior studies available. RADIATION DOSE METRICS: Total DLP (mGy-cm): 703.46 FINDINGS: Bones/joints: No acute fracture. Normal alignment. Discs/Spinal canal/Neural foramina: No significant disc protrusion. No severe spinal canal stenosis. No significant neural foraminal narrowing. Lungs: Lung apices are normal. Soft tissues: Unremarkable. CT/CT cervical spin wo con* [id number] IMPRESSION: No acute findings. Radiation Dose CTDIVOL = (mGy): DLP = 703.46 (mGy-cm)
[2020-08-27 22:28] LABS: Basophils # 0.1 10^3/uL (0.0-0.1); Basophils % 0.7 %; Eosinophils # 0.2 10^3/uL (0.0-0.8); Hematocrit 44.8 % (42.0-52.0); Hemoglobin 15.1 g/dL (11.7-16.6); Lymphocytes # 2.3 10^3/uL (0.8-4.8); Lymphocytes % 31.1 %; Mean Corpuscular HGB Conc 33.7 g/dL (30.0-36.0); Mean Corpuscular Volume 88.9 fL (80-94); Mean Platelet Volume 9.1 fL (7.4-10.4); Monocytes # 1.1 10^3/uL (0.2-0.9); Monocytes % 14.9 %; Neutrophils # 3.71 10^3/uL (1.8-7.7); Neutrophils % 49.9 %; Nucleated Red Blood Cells % 0 %; Platelet Count 350 10^3/cmm (130-400); Red Blood Count 5.04 10^6/uL (4.1-5.3); Red Cell Distribution Width 12.7 % (12.1-15.1); White Blood Count 7.4 10^3/uL (4.0-10.0)
--- NOTE | 2020-08-27 22:29 | W.ED.SYNCOPE ---
HPI - Syncope General: Chief Complaint: Syncope Stated Complaint: STATES FELL WITH SYNCOPAL EPISODE Time Seen by Provider: 08/27/20 22:05 Source: patient Mode of arrival: ambulatory Limitations: no limitations History of Present Illness: HPI narrative: 19-year-old male states that he has been down putting a DVD in for his kids just prior arrival and had a syncopal event. He states he fell onto a CD stand and hit his head he has got some head neck and low back pain. Patient lost consciousness for seconds. He denies any chest pain before or after the event. Denies any worsening improving factors. Associated symptoms: Deny abdominal pain, fever(s), headache(s) or nausea Review of Systems Const: Denies: fever(s), chills, body aches or change in appetite Eyes: Denies: blurry vision or eye discomfort ENMT: Denies: throat pain or dental pain Card: Reports: syncope Resp: Denies: dyspnea GI: Denies: abdominal pain, nausea, vomiting or diarrhea : Denies: dysuria Musc: Reports: neck pain, back pain and extremity pain Skin/Breast: Denies: rash Neuro: Denies: headache(s) Psych: Denies: depression Yonatan/Lymph: Denies: easy bruising All/Imm: Denies: urticaria PFSH ED PFSH: Medical History (Updated 08/27/20 @ 23:32 by Hanna Patel MD) ADHD GERD with apnea Major depression Mild intermittent asthma with (acute) exacerbation Surgical History No pertinent past surgical history Social History Smoking and tobacco status: current every day smoker cigarettes Packs smoked per day: 1 Quit status (tobacco): not considering quitting Second hand smoke exposure: Yes Alcohol intake: never Desire information about alcohol rehabilitation?: No Desire information about substance/drug rehabilitation?: No History of recent travel: No Current gender identity: Male Physical Exam Const: COMMON NORMALS: no acute distress, patient oriented x3 and healthy appearing HENMT: COMMON NORMALS: normocephalic and atraumatic HEAD & SCALP: normocephalic and atraumatic Eye: COMMON NORMALS: Equal, round and reactive pupils present and EOMs intact bilaterally PUPIL: Yes Equal, round and reactive pupils present Neck/C-Spine: OTHER: in c collar Chest: COMMONS NORMALS: normal inspection of the chest and normal palpation of entire chest wall Resp: COMMON NORMALS: normal respiratory effort, No retractions, No use of accessory muscles and clear to auscultation bilaterally AUSCULTATION: clear to auscultation bilaterally Cardio: COMMON NORMALS: regular rate, regular rhythm and No murmurs present (Cardio) RATE: regular rate RHYTHM: regular rhythm GI: COMMON NORMALS: Normal to inspection, nondistended, normoactive bowel sounds present, Soft to palpation, non-tender and no masses PALPATION: Yes Soft to palpation Back/Pelvis: OTHER: Tenderness over lumbar region Extremity: COMMON NORMALS: normal to inspection and full ROM OTHER: Tenderness right knee with no obvious deformity Neuro: COMMON NORMALS: patient oriented x3, moves all extremities and no focal motor deficits Psych: COMMON NORMALS: mental status grossly normal, Normal thought process present and cooperative THOUGHT PROCESS: Normal thought process present Skin: COMMON NORMALS: no rashes or lesions noted and no wounds GENERAL SKIN EXAM: no rashes or lesions noted Course Vital Signs: Vital signs: Vital Signs Temperature 96.4 F L 08/27/20 21:52 Pulse Rate 101 H 08/27/20 21:52 Respiratory Rate 16 08/27/20 23:15 Blood Pressure 161/92 08/27/20 21:52 Pulse Oximetry 100 08/27/20 21:52 MDM - Syncope MDM Narrative: Medical decision making narrative: Ted presents here with a syncopal event likely vasovagal. He did hit his head neck and back on his fall CTs were all normal. Knee x-ray is normal as well. He has been well-appearing here. His blood counts normal and EKG is normal. Is no signs of cardiac cause or pulmonary embolism. He is stable for discharge is to follow-up PCP in 3 to 5 days return if worsening. Lab Data: Labs: Lab Results 08/27/20 Range/Units 22:15 WBC 7.4 (4.0-10.0) 10^3/ uL RBC 5.04 (4.1-5.3) 10^6/u L Hgb 15.1 (11.7-16.6) g/dL Hct 44.8 (42.0-52.0) % MCV 88.9 (80-94) fL MCH 30.0 (28.0-34.0) pg MCHC 33.7 (30.0-36.0) g/dL RDW 12.7 (12.1-15.1) % Plt Count 350 (130-400) 10^3/c mm MPV 9.1 (7.4-10.4) fL Neut % (Auto) 49.9 % Lymph % (Auto) 31.1 % Pepin % (Auto) 14.9 % Eos % (Auto) 3.0 % Baso % (Auto) 0.7 % Neut # (Auto) 3.71 (1.8-7.7) 10^3/u L Lymph # (Auto) 2.3 (0.8-4.8) 10^3/u L Pepin # (Auto) 1.1 H (0.2-0.9) 10^3/u L Eos # (Auto) 0.2 (0.0-0.8) 10^3/u L Baso # (Auto) 0.1 (0.0-0.1) 10^3/u L Nucleated RBC % (a uto) 0 % Nucleated RBCs # 0.0 /100WBC Imaging Data^: xr knee r: Attestation: I personally reviewed and interpreted this imaging study as follows: My impression: no acute abnormality CT Head: Attestation: I personally reviewed and interpreted this imaging study as follows: Radiologist's impression: [address] [address] [address] Scan Report Signed Patient: Ted Ordonez Unit #: [id number] : 2000 Age/Sex: 19 / M ADM Date: 08/27/20 Loc: ER Room/Bed: Attending Dr: Ordering Provider/Ordering MD: Hanna Patel MD Date of Service: 08/27/20 Procedure(s): CT head wo con* [id number] Accession Number(s): [id number] Report Number: [id number] PROCEDURE INFORMATION: Exam: CT Head Without Contrast Exam date and time: 08/27/2020 10:22 PM Age: 19 years old Clinical indication: Syncope and collapse; Patient HX: Syncope w fall from standing; Additional info: Head injury TECHNIQUE: Imaging protocol: Computed tomography of the head without contrast. Radiation optimization: All CT scans at this facility use at least one of these dose optimization techniques: automated exposure control; mA and/or kV adjustment per patient size (includes targeted exams where dose is matched to clinical indication); or iterative reconstruction. COMPARISON: No relevant prior studies available. RADIATION DOSE METRICS: Total DLP (mGy-cm): 877.91 FINDINGS: Brain: Normal. No hemorrhage. Unremarkable white matter. No mass effect. Cerebral ventricles: No ventriculomegaly. Bones/joints: Unremarkable. No acute fracture. Paranasal sinuses: Visualized sinuses are unremarkable. No fluid levels. Mastoid air cells: Visualized mastoid air cells are well aerated. Soft tissues: Unremarkable. CT/CT head wo con* [id number] IMPRESSION: No acute intracranial abnormality. ct lumbar: Attestation: I personally reviewed and interpreted this imaging study as follows: Radiologist's impression: [facility] [address] [address] Scan Report Signed Patient: Ted Ordonez Unit #: [id number] : 2000 Age/Sex: 19 / M ADM Date: 08/27/20 Loc: ER Room/Bed: Attending Dr: Ordering Provider/Ordering MD: Hanna Patel MD Date of Service: 08/27/20 Procedure(s): CT lumbar spine wo con* [id number] Accession Number(s): [id number] Report Number: [id number] PROCEDURE INFORMATION: Exam: CT Lumbar Spine Without Contrast Exam date and time: 08/27/2020 10:22 PM Age: 19 years old Clinical indication: Injury or trauma; Blunt trauma (contusions or hematomas); Patient HX: Syncope w fall from standing C/O lbp TECHNIQUE: Imaging protocol: Computed tomography images of the lumbar spine without contrast. Radiation optimization: All CT scans at this facility use at least one of these dose optimization techniques: automated exposure control; mA and/or kV adjustment per patient size (includes targeted exams where dose is matched to clinical indication); or iterative reconstruction. COMPARISON: No relevant prior studies available. RADIATION DOSE METRICS: Total DLP (mGy-cm): 2357.41 FINDINGS: Vertebrae: No acute fracture. Normal alignment. Discs/Spinal canal/Neural foramina: No significant disc protrusion. No severe spinal canal stenosis. No significant neural foraminal narrowing. Soft tissues: Unremarkable. CT/CT lumbar spine wo con* [id number] IMPRESSION: No acute findings. Radiation Dose CTDIVOL = (mGy): DLP = 2357.41 (mGy-cm) ct c spine: Attestation: I personally reviewed and interpreted this imaging study as follows: Radiologist's impression: [facility] [place] [address] CT Scan Report Signed Patient: Ted Ordonez Unit #: [id number] : 2000 Age/Sex: 19 / M ADM Date: 08/27/20 Loc: ER Room/Bed: Attending Dr: Ordering Provider/Ordering MD: Hanna Patel MD Date of Service: 08/27/20 Procedure(s): CT cervical spin wo con* [id number] Accession Number(s): [id number] Report Number: [id number] PROCEDURE INFORMATION: Exam: CT Cervical Spine Without Contrast Exam date and time: 08/27/2020 10:22 PM Age: 19 years old Clinical indication: Injury or trauma; Blunt trauma; Patient HX: Syncope w fall from standing C/O neck pain TECHNIQUE: Imaging protocol: Computed tomography images of the cervical spine without contrast. Radiation optimization: All CT scans at this facility use at least one of these dose optimization techniques: automated exposure control; mA and/or kV adjustment per patient size (includes targeted exams where dose is matched to clinical indication); or iterative reconstruction. COMPARISON: No relevant prior studies available. RADIATION DOSE METRICS: Total DLP (mGy-cm): 703.46 FINDINGS: Bones/joints: No acute fracture. Normal alignment. Discs/Spinal canal/Neural foramina: No significant disc protrusion. No severe spinal canal stenosis. No significant neural foraminal narrowing. Lungs: Lung apices are normal. Soft tissues: Unremarkable. CT/CT cervical spin wo con* [id number] IMPRESSION: No acute findings. Radiation Dose CTDIVOL = (mGy): DLP = 703.46 (mGy EKG Data^: EKG 1: Attestation: I personally reviewed and interpreted this EKG as follows: EKG interpretation date: 08/27/20 EKG interpretation time: 22:25 Interpretation: nsr hr [address] or t wave abnormalities qrs 94 qtc 396 Discharge Plan Discharge Patient Disposition: Home Clinical Impression: Syncope Qualifiers: Syncope type: unspecified Qualified Code(s): R55 - Syncope and collapse Closed head injury Qualifiers: Encounter type: initial encounter Qualified Code(s): S09.90XA - Unspecified injury of head, initial encounter Back contusion Qualifiers: Encounter type: initial encounter Laterality: unspecified laterality Qualified Code(s): S20.229A - Contusion of unspecified back wall of thorax, initial encounter Condition: Stable Prescriptions: New Naprosyn 500 mg tablet 500 mg PO BID PRN (Reason: pain) Qty: 20 RF: 0 No Action omeprazole 20 mg capsule,delayed release(DR/EC) 20 mg PO DAILY 30 Days Qty: 30 RF: 2 buspirone 5 mg tablet 5 mg PO BID RF: 0 sertraline 50 mg tablet 50 mg PO DAILY Qty: 90 RF: 0 Rexulti 0.5 mg tablet 0.5 mg PO BEDTIME Qty: 30 RF: 0 chlorzoxazone 500 mg tablet 500 mg PO TID 10 Days Qty: 30 RF: 0 acetaminophen-codeine 300-30 mg tablet 1 tab PO Q6H PRN (Reason: pain) Qty: 24 RF: 0 lisinopril 10 mg tablet 10 mg PO DAILY@1000 Qty: 90 RF: 0 cetirizine 10 mg tablet,chewable 10 mg PO DAILY PRN (Reason: allergy symptoms) Qty: 30 RF: 3 albuterol sulfate [ProAir HFA] 90 mcg/actuation HFA aerosol inhaler See Rx Instructions .ROUTE .COMPLEX Qty: 8.5 RF: 2 Anti Nausea Sublingual See Rx Instructions .ROUTE .COMPLEX RF: 0 naproxen 500 mg Tablet 500 mg PO BID RF: 0 hydrocodone-acetaminophen 5-325 mg tablet 1 tab PO Q4H PRN (Reason: pain) Qty: 7 RF: 0 Discharge Orders: Discharge ED (Routine); Ordered 08/27/20 Ordered By: Hanna Patel Referrals: Shiraz Barragan PA [Primary Care Provider] - 1-3 days Discharge Diet: Advance as tolerated Discharge Activity: Resume usual activity Patient Instructions: Syncope (ED) Coding Level of Care Code ED [employer] D[employer]ler for Maddy Fwd Exam Comprehensive
[2020-08-27 22:42] VITALS: RESP 16
[2020-08-27] MEDS: morphine 4 mg/mL SDV 1 mL IVP (22:42)
[2020-08-27] MEDS: ondansetron 2 mg/ML SDV 2 mL 4 MG IVP (22:44)
[2020-08-27 23:15] VITALS: RESP 16
[2020-08-27] MEDS: HYDROmorphone 1 mg/mL INJ 1 mL IVP (23:15)
== END 2020-08-28 00:16 | disposition home or self-care (01) ==
PROVIDERS: Emergency Provider Emergency Medicine; PCP Emergency Medicine
DX: R55 Syncope and collapse (principal); S09.8XXA Other specified injuries of head, initial encounter; S20.229A Contusion of unspecified back wall of thorax, initial encounter; F17.210 Nicotine dependence, cigarettes, uncomplicated; W19.XXXA Unspecified fall, initial encounter
CPT/HCPCS: 70450; 72125; 72131; 73562; 85025; 93005; 96374; 96375; 99283; J1170; J2270; J2405

== ENCOUNTER 2020-10-18 19:41 | Emergency (ER) | payer MEDICAID, SELFPAY ==
[2020-10-18 19:59] VITALS: PULSE 105; RESP 18; TEMP 36.8; O2SAT 99; BMI 34.2
--- NOTE | 2020-10-18 20:10 | W.ED.EXTPRO ---
HPI - Extremity Problem General: Chief complaint: Extremity Injury, Lower Stated complaint: L hip and leg pain Time Seen by Provider: 10/18/20 19:56 History of Present Illness: HPI Narrative: She complains about left buttock pain from a fall last night when he slipped on a hardwood floor in his mom's kitchen when he said he was trying to cook supper. Has been able to ambulate but he says it hurts down his leg like sciatica. Complaint: extremity pain Onset (ago): day(s) Pain Consistency: intermittent Location: left and lower extremity Quality: aching Radiation: distal Relieving factors: immobilization Exacerbating factors: range of motion and weight bearing Associated symptoms: Reports no associated symptoms; Deny chest pain, fever(s) or rash Review of Systems Const: Denies: fever(s), chills or body aches Eyes: Denies: change in vision or blurry vision ENMT: Denies: throat pain or nasal congestion Card: Denies: chest pain or dyspnea on exertion Resp: Denies: dyspnea, productive cough or non-productive cough GI: Denies: abdominal pain, nausea or vomiting : Denies: difficulty urinating Musc: Reports: extremity pain (Left buttock left leg. Able to ambulate with a cane. History of back prob) Skin/Breast: Denies: rash Neuro: Denies: headache(s) Psych: Denies: anxiety or depression Yonatan/Lymph: Denies: easy bruising [facility] ED PFSH: Medical History (Updated 10/18/20 @ 20:10 by JORDI Hess) ADHD GERD with apnea Major depression Mild intermittent asthma with (acute) exacerbation Surgical History No pertinent past surgical history Social History Smoking and tobacco status: current every day smoker cigarettes Packs smoked per day: 1 Quit status (tobacco): not considering quitting Second hand smoke exposure: Yes Alcohol intake: never Desire information about alcohol rehabilitation?: No Desire information about substance/drug rehabilitation?: No History of recent travel: No Current gender identity: Male Physical Exam Const: COMMON NORMALS: no acute distress, average body habitus and patient oriented x3 HENMT: COMMON NORMALS: normocephalic HEAD & SCALP: normal to inspection and normocephalic FACE & SINUS: normal facial exam Eye: COMMON NORMALS: conjunctivae normal GENERAL EYE: appearance normal, both eyes and all related structures CONJUNCTIVA: Yes conjunctivae normal Neck/C-Spine: COMMON NORMALS: no JVD Chest: COMMONS NORMALS: normal inspection of the chest Resp: COMMON NORMALS: normal respiratory effort Cardio: COMMON NORMALS: no JVD and regular rhythm RHYTHM: regular rhythm GI: COMMON NORMALS: Normal to inspection, nondistended, normoactive bowel sounds present Extremity: COMMON NORMALS: normal to inspection and full ROM OTHER: Has tenderness to left buttock along sciatica, able to ambulate in slight limp. No pain to hip joint no pain to the back. Neuro: COMMON NORMALS: patient oriented x3 Course Vital Signs: Vital signs: Vital Signs Temperature 98.3 F 10/18/20 19:59 Pulse Rate 105 H 10/18/20 19:59 Respiratory Rate 18 10/18/20 19:59 Pulse Oximetry 99 10/18/20 19:59 Discharge Plan Discharge Patient Disposition: Home Clinical Impression: Contusion of left hip Qualifiers: Encounter type: initial encounter Qualified Code(s): S70.02XA - Contusion of left hip, initial encounter Condition: Stable Prescriptions: New Voltaren 1 % gel 4 g topical QID Qty: 100 RF: 0 No Action omeprazole 20 mg capsule,delayed release(DR/EC) 20 mg PO DAILY 30 Days Qty: 30 RF: 2 buspirone 5 mg tablet 5 mg PO BID RF: 0 sertraline 50 mg tablet 50 mg PO DAILY Qty: 90 RF: 0 Rexulti 0.5 mg tablet 0.5 mg PO BEDTIME Qty: 30 RF: 0 chlorzoxazone 500 mg tablet 500 mg PO TID 10 Days Qty: 30 RF: 0 lisinopril 10 mg tablet 10 mg PO DAILY@1000 Qty: 90 RF: 0 amoxicillin-pot clavulanate 400-57 mg/5 mL suspension for reconstitution 5 ml PO BID 10 Days Qty: 100 RF: 0 fexofenadine-pseudoephedrine [Fely-D 12 Hour] 60-120 mg tablet extended release 12 hr 1 tab PO Q12H PRN (Reason: sinus symptoms) 14 Days Qty: 30 RF: 0 cetirizine 10 mg tablet,chewable 10 mg PO DAILY PRN (Reason: allergy symptoms) Qty: 30 RF: 3 albuterol sulfate [ProAir HFA] 90 mcg/actuation HFA aerosol inhaler See Rx Instructions .ROUTE .COMPLEX Qty: 8.5 RF: 2 Naprosyn 500 mg tablet 500 mg PO BID PRN (Reason: pain) Qty: 20 RF: 0 Discharge Orders: Discharge ED (Routine); Ordered 10/18/20 Ordered By: Kuldeep Addison Referrals: Shiraz Barragan PA [Primary Care Provider] - Discharge Diet: Usual diet Discharge Activity: Increase activity as tolerated Patient Instructions: Contusion in Adults (ED) Activity Restrictions/Additional Instructions: Follow-up with medical provider as directed. Take medications as prescribed. Return to the ER or your medical provider if condition worsens. Please read and understand discharge instructions. If any questions ask please. APPly ice to area. Coding Level of Care Code ED Academic Support Assistant for Maddy Card
[2020-10-18] MEDS: ketorolac 60 mg/2 mL INJ IM (20:35)
[2020-10-18] MEDS: methylPREDNISolone (DEPO) 80 MG/ML INJ 1 mL IM (20:37)
[2020-10-18 20:48] VITALS: BP 161/96; PULSE 76; RESP 18; O2SAT 97
== END 2020-10-18 20:40 | disposition home or self-care (01) ==
PROVIDERS: Emergency Provider Nurse Practitioner Family; PCP Emergency Medicine
DX: S70.02XA Contusion of left hip, initial encounter (principal); F17.210 Nicotine dependence, cigarettes, uncomplicated; W01.0XXA Fall on same level from slipping, tripping and stumbling without subsequent striking against object, initial encounter
CPT/HCPCS: 96372; 99283; J1040; J1885

== ENCOUNTER → 2021-01-24 12:51 | Outpatient (BNVA) | payer MEDICAID, SELFPAY | PROVIDERS: PCP Emergency Medicine; Visit Provider Nurse Practitioner Family | DX: Z20.822 Contact with and (suspected) exposure to COVID-19 (principal); J40 Bronchitis, not specified as acute or chronic; L03.211 Cellulitis of face | CPT/HCPCS: 87635 ==

== ENCOUNTER 2021-02-01 11:45 | Emergency (ER) | payer MEDICAID, SELFPAY ==
[2021-02-01] VITALS (9 sets, daily range): BP systolic 152–173; BP diastolic 76–96; PULSE 86–92; RESP 16–22; TEMP 36.6–37.1; O2SAT 98–100; BMI 34.8
--- NOTE | 2021-02-01 11:53 | ED_ITS ---
HPI - Back Pain/Injury General: Chief Complaint: Back Pain/Injury Stated Complaint: BACK PAIN Time Seen by Provider: 02/01/21 11:53 History of Present Illness: HPI Narrative: Mr. Ordonez is a 20-year-old gentleman with reported history of herniated disks who presents emerged department due to back pain. Back pain has been a longstanding issue and he typically follows at [facility] with Dr. Ordonez. Onset of symptoms was nontraumatic. He has had gradual worsening over the past few days. He now endorses numbness on the medial aspect of the upper right leg and hemiscrotal area. No loss of control of bowel or bladder. No infectious symptoms. No his tory of IV drug use. Overall the intensity symptoms have been worsening. Density is now severe. It is unrelenting. He has tried [id number] medications without significant relief. Review of Systems General: Reports: 10 or more systems reviewed and unremarkable except in HPI and below PFSH ED PFSH: Medical History ADHD Asthma GERD with apnea Major depression Mild intermittent asthma with (acute) exacerbation Smoking Surgical History No pertinent past surgical history Social History Smoking and tobacco status: current every day smoker cigarettes Packs smoked per day: 1 Quit status (tobacco): not considering quitting Second hand smoke exposure: Yes Alcohol intake: never Desire information about alcohol rehabilitation?: No Desire information about substance/drug rehabilitation?: No History of recent travel: No Current gender identity: Male Physical Exam Narrative: EXAM NARRATIVE: GENERAL/CONSTITUTIONAL - well-appearing. distress due to pain Eyes - PERRL, no conjunctival injection ENMT - Atraumatic external nose and ears. Moist mucous membranes NECK - supple. trachea midline CARDIOVASCULAR - regular rate and rhythm. Peripheral pulses 2+ and equal RESPIRATORY -clear to auscultation bilaterally. No retractions or accessory muscle use. ABDOMEN/GI - Nontender/Nondistended. No tenderness to percussion or evidence of peritonitis MSK - Extremities without obvious deformity or tenderness to palpation SKIN - Warm, Dry NEURO - alert and appropriately oriented. subjective sensory changes. ROM limited due to pain. PSYCH - Appropriate mood and affect Course ED course: - Patient was seen and evaluated by me at bedside - Patient placed on cardiac monitors, IV access obtained - Initial evaluation notable for moderate distress due to pain. No motor deficits. -Analgesia ordered - Labs notable for no evidence of uti - Imaging notable for no obvious abnormalities on CT - challenging situation however patient reports hstory of disc problems which are not evaluated on CT. Essentially now with changes concerning for saddle anesthesia on one side. Therefore MRI required. MRI findings as noted in read. Discussed with Dr Flemign; no acute surgical intervention. - Upon serial reexamination after treatment the patient was - Based on patient history, evaluation, labs, and imaging as interpreted the most likely cause of the patient's condition is paresthesias and pain related to MRI findings - The results of ED evaluation were discussed with the patient including prescriptions and/or symptomatic cares (if applicable) including appropriate and responsible use, followup plan, and return precautions. The patient verbalized understanding and felt safe for discharge. - Patient discharged in satisfactory condition. Vital Signs: Vital signs: Vital Signs Temperature 98.7 F 02/01/21 16:30 Pulse Rate 88 02/01/21 16:30 Respiratory Rate 16 02/01/21 16:30 Blood Pressure 164/94 02/01/21 16:30 Pulse Oximetry 99 02/01/21 16:30 MDM - Back Pain/Injury Medical Records: Attestation: I reviewed the patient's medical records. Lab Data: Attestation: I reviewed the patient's lab results. Labs: Lab Results 02/01/21 13:10 Urine Color Yellow (Yellow) Urine Appearance Clear (CLEAR) Urine pH 8 H (5-7) Ur Specific Gravit y 1.010 (1.005-1.030) Urine Protein Neg (Negative) Urine Glucose (UA) Norm (Normal) Urine Ketones Negative (Negative) Urine Blood Neg (Negative) Urine Nitrate Negative (Negative) Urine Bilirubin Neg (Negative) Prot Sulfosalicyli c Acd Negative (Negative) Urine Urobilinogen Norm mg/dL mg/dL (Negative) Ur Leukocyte Fransisca ase Negative (Negative) Discharge Plan Discharge Patient Disposition: Home Clinical Impression: Back pain, Paresthesia of bilateral legs Condition: Stable Prescriptions: New prednisone 20 mg tablet See Rx Instructions .ROUTE .COMPLEX 7 Days Qty: 15 RF: 0 oxycodone 5 mg tablet 5 mg PO Q4H PRN (Reason: pain) Qty: 6 RF: 0 No Action buspirone 5 mg tablet 5 mg PO BID RF: 0 lisinopril 30 mg tablet 30 mg PO DAILY Qty: 30 RF: 2 methocarbamol 750 mg tablet 750 mg PO TID 5 Days Qty: 15 RF: 0 sulfamethoxazole-trimethoprim 800-160 mg tablet 1 tab PO BID 14 Days Qty: 28 RF: 0 albuterol sulfate [ProAir HFA] 90 mcg/actuation HFA aerosol inhaler 2 puff inhalation Q6H PRN (Reason: shortness of breath or wheezing) Qty: 8.5 RF: 0 prednisone 20 mg tablet 40 mg PO DAILY 5 Days Qty: 10 RF: 0 cetirizine 10 mg tablet,chewable 10 mg PO DAILY PRN (Reason: allergy symptoms) Qty: 30 RF: 3 Voltaren 1 % gel 4 g topical QID Qty: 100 RF: 0 Naprosyn 500 mg tablet 500 mg PO BID PRN (Reason: pain) Qty: 20 RF: 0 Discharge Orders: Discharge ED (Routine); Ordered 02/01/21 Ordered By: Dae Jules Referrals: Shiraz Barragan PA [Primary Care Provider] - Discharge Diet: Usual diet Discharge Activity: Increase activity as tolerated Patient Instructions: Lumbar Radiculopathy (ED), Chronic Back Pain (ED), Opioid Safety Activity Restrictions/Additional Instructions: Thank you for visiting the emergency department. You were seen and evaluated for back pain. MRI revealed the following findings. You will be given prescriptions for symptom control. Please follow-up with either Dr. Fleming with the orthopedic spine service here at [facility] or with your previously established spine physician. Please return to the emergency department for worsening of your symptoms, loss of bowel or bladder control, or anything else that you are concerned about and feel needs emergency department evaluation. IMPRESSION: 1. Shallow broad-based central protrusion L5-S1 with a small annular tear slightly impinges the traversing LEFT greater than RIGHT S1 nerve roots. 2. Small left foraminal protrusion L5-S1 slightly contacts the exiting LEFT L5 nerve root. Mild RIGHT L5-S1 foraminal narrowing. 3. Tiny LEFT foraminal protrusion L4-5 slightly encroaches on the exiting LEFT L4 nerve root. 4. Mild facet arthropathy L3-L5. Coding Level of Care Code ED Model And Mold Maker for Maddy Card
--- NOTE | 2021-02-01 12:10 | CTR_ITS ---
PROCEDURE INFORMATION: Exam: CT Lumbar Spine Without Contrast Exam date and time: 02/01/2021 12:10 PM Age: 20 years old Clinical indication: Low back pain; Additional info: Pain, paresthesias TECHNIQUE: Imaging protocol: Computed tomography images of the lumbar spine without contrast. Radiation optimization: All CT scans at this facility use at least one of these dose optimization techniques: automated exposure control; mA and/or kV adjustment per patient size (includes targeted exams where dose is matched to clinical indication); or iterative reconstruction. COMPARISON: CT lumbar spine wo con* [id number] 08/27/2020 11:11 PM RADIATION DOSE METRICS: Total DLP (mGy-cm): 2333.95 FINDINGS: Vertebrae: No acute fracture. Normal alignment. Discs/Spinal canal/Neural foramina: No significant disc protrusion. No severe spinal canal stenosis. No significant neural foraminal narrowing. Soft tissues: Unremarkable. CT/CT lumbar spine wo con* [id number] IMPRESSION: No significant abnormality. Radiation Dose CTDIVOL = (mGy): DLP = 2333.95 (mGy-cm)
[2021-02-01] MEDS: acetaminophen 500 mg Tablet 1000 MG PO (12:21)
[2021-02-01] MEDS: fentaNYL 50 mcg/mL INJ 2mL IVP (12:22)
[2021-02-01] MEDS: lidocaine 5% Patch 1 PATCH TOPICAL (12:22)
[2021-02-01] MEDS: methocarbamol 750 mg Tablet PO (12:22)
[2021-02-01] MEDS: diazePAM 2 mg Tablet PO (12:32)
[2021-02-01 13:18] LABS: Add Urine Microscopic? NO; Charge for UA Resulting for Rev
[2021-02-01] MEDS: ketorolac 30 mg/mL INJ 15 MG IVP (13:18)
[2021-02-01] MEDS: morphine 4 mg/mL SDV 1 mL IVP ×2 (13:18→14:54)
--- NOTE | 2021-02-01 13:24 | MR_ITS ---
WS: [id number] MRI LUMBAR SPINE NONCONTRAST TECHNIQUE: Sagittal T1, T2 and STIR imaging. Axial T1 and T2 imaging. CLINICAL INFORMATION: r/o cauda equina COMPARISON: None. FINDINGS: Mild lumbar curve. No acute compression. Disc bulging worse L5-S1 with a tiny annular tear. No high-g rade central canal stenosis. L1-L2: Normal. L2-L3: Normal. L3-L4: No significant disc bulging. Mild facet arthropathy. Spinal canal and foramen are patent. L4-L5: Minimal annular bulging with slight effacement of ventral thecal sac. Tiny left foraminal prot rusion with mild left foraminal narrowing. Right foramen is patent. Mild facet arthropathy. Spinal ca nal is patent. L5-S1: Shallow broad-based left pericentral protrusion with a small annular tear. Slight impingement traversing left greater than right S1 nerve roots. Recommend correlation for S1 nerve root symptoms. Mild left foraminal narrowing encroaches on the exiting left L5 nerve root. Mild right foraminal narr owing. Mild facet arthropathy. Visualized pelvic bony structures: Normal. Paravertebral soft tissues: Normal. Small left renal cyst. MR/MR lumbar spine wo con* [id number] IMPRESSION: 1. Shallow broad-based central protrusion L5-S1 with a small annular tear slig htly impinges the traversing LEFT greater than RIGHT S1 nerve roots. 2. Small left foraminal protrusion L5-S1 slightly contacts the exiting LEFT L5 nerve root. Mild RIGHT L5-S1 foraminal narrowing. 3. Tiny LEFT foraminal protrusion L4-5 slightly encroaches on the exiting LEFT L4 nerve root. 4. Mild facet arthropathy L3-L5.
[2021-02-01 13:36] LABS: Bilirubin Urine Neg (Negative); Blood Urine Neg (Negative); Glucose Urine UA Norm (Normal); Ketones Urine Negative (Negative); Leukocyte Esterase Urine Negative (Negative); Nitrate Urine Negative (Negative); Protein Urine Neg (Negative); Sulfosalicylic Acid Urine Negative (Negative); Urine Appearance Clear (CLEAR); Urine Color Yellow (Yellow); Urobilinogen Urine Norm (Negative); pH Urine 8 (5-7)
--- NOTE | 2021-02-01 15:10 | PC.NURSE ---
Patient left for MRI at 1500 by EMS, to return to room after testing is complete.
--- NOTE | 2021-02-01 15:55 | PC.NURSE ---
Patient returns from MRI at 1540 without incident.
== END 2021-02-01 16:32 | disposition home or self-care (01) ==
PROVIDERS: Emergency Provider Emergency Medicine; PCP Emergency Medicine
DX: M54.9 Dorsalgia, unspecified (principal); R20.2 Paresthesia of skin; F17.210 Nicotine dependence, cigarettes, uncomplicated
CPT/HCPCS: 72131; 72148; 81003; 96374; 96375; 96376; 99284; J1885; J2270; J3010

== ENCOUNTER 2021-04-10 06:25 | Emergency (ER) | payer MEDICAID, SELFPAY ==
[2021-04-10] VITALS (8 sets, daily range): BP systolic 141–151; BP diastolic 85; PULSE 110–122; RESP 17–22; TEMP 36.4–36.9; O2SAT 92–99; BMI 34.8
[2021-04-10] MEDS: orphenadrine 30 mg/mL Inj 2 mL 60 MG IM (06:57)
[2021-04-10] MEDS: ketorolac 30 mg/mL INJ IVP (06:59)
[2021-04-10] MEDS: dexamethasone 10 mg/mL INJ IVP (07:01)
--- NOTE | 2021-04-10 07:01 | W.ED.BACK ---
HPI - Back Pain/Injury General: Chief Complaint: Back Pain/Injury Stated Complaint: BACK PAIN Time Seen by Provider: 04/10/21 06:28 History of Present Illness: HPI Narrative: 21-year-old male presents to the emergency room complaining of acutely worsening back pain. Patient has chronic back pain and recently had an MRI which was followed up with some epidural injections. He was sexually active last evening and now has significant right radicular leg pain. He has not previously had any surgery to his back he denies any urinary retention or fecal incontinence. No numbness or tingling in the leg. He reports sensation is normal. Denies any other trauma falls or other known injuries MD elicited complaint: back pain Pertinent past history: prior back pain Onset (ago): hour(s) Timing: constant Severity: severe Similar Symptoms Previously: Yes Quality: sharp Location: lumbar spine (Left leg radicular pain) Radiation: left upper leg and left leg below the knee Exacerbating factors: movement and walking Relieving factors: supine Associated symptoms: Deny abdominal pain, arthralgias, chills, change in bowel habits, difficulty walking, dysuria, fatigue, fecal incontinence, fever(s), hematuria, myalgias, nausea, numbness, syncope, tingling/numbness/burning, urinary frequency, urinary urgency, vomiting or weakness Review of Systems Const: Denies: fever(s), chills or fatigue ENMT: Denies: throat pain, ear or mastoid pain, nasal discharge or nasal congestion Card: Denies: syncope Resp: Denies: dyspnea, productive cough or non-productive cough GI: Denies: abdominal pain, nausea, vomiting, fecal incontinence or change in bowel habits : Denies: dysuria, urinary urgency or hematuria Skin/Breast: Denies: rash or pruritus Neuro: Denies: difficulty walking PFSH ED PFSH: Medical History ADHD Asthma GERD with apnea Major depression Mild intermittent asthma with (acute) exacerbation Smoking Surgical History No pertinent past surgical history Social History Smoking and tobacco status: current every day smoker cigarettes Packs smoked per day: 1 Quit status (tobacco): not considering quitting Second hand smoke exposure: Yes Alcohol intake: never Desire information about alcohol rehabilitation?: No Desire information about substance/drug rehabilitation?: No History of recent travel: No Current gender identity: Male Physical Exam Const: COMMON NORMALS: no acute distress GENERAL APPEARANCE: cooperative and comfortable ORIENTATION/CONSCIOUSNESS: Yes awake, Yes oriented to person, Yes oriented to place and Yes oriented to time HENMT: COMMON NORMALS: normocephalic, atraumatic and hearing grossly normal bilaterally HEAD & SCALP: normocephalic and atraumatic Neck/C-Spine: COMMON NORMALS: no JVD Resp: COMMON NORMALS: normal respiratory effort, No retractions, No use of accessory muscles and clear to auscultation bilaterally AUSCULTATION: clear to auscultation bilaterally Cardio: COMMON NORMALS: no JVD, regular rate, regular rhythm and No murmurs present (Cardio) RATE: regular rate RHYTHM: regular rhythm GI: COMMON NORMALS: Soft to palpation and No hepatosplenomegaly present AUSCULTATION: Yes normoactive bowel sounds PALPATION: Yes Soft to palpation, No Tenderness to palpation present (GI), No Guarding due to palpation present (GI) and Yes No hepatosplenomegaly present Extremity: COMMON NORMALS: normal to inspection, capillary refill normal, no clubbing, cyanosis or edema, no calf tenderness and no pedal edema Neuro: SENSORIUM/ORIENTATION: Yes oriented to person, Yes oriented to place and Yes oriented to time OTHER: Deep tendon reflexes +2/4 left patellar tendon sensation lower extremity normal to sharp touch torso bilateral flexion strength 5/5 Skin: COMMON NORMALS: no rashes or lesions noted GENERAL SKIN EXAM: no rashes or lesions noted Course Vital Signs: Vital signs: Vital Signs Temperature 98.4 F 04/10/21 10:08 Pulse Rate 110 H 04/10/21 10:08 Respiratory Rate 20 H 04/10/21 10:08 Blood Pressure 151/85 04/10/21 10:08 Pulse Oximetry 96 04/10/21 10:08 MDM - Back Pain/Injury MDM Narrative: Medical decision making narrative: Known mild disc disease. Clinically appears patient exacerbated nerve root irritation. MRI did not show any severe nerve compression. He has no signs of cauda equina syndrome clinically. Fadumo go ahead and discharge the patient home with hydrocodone steroids muscle relaxers and anti-inflammatories follow-up with primary care or Ortho. Return if has further problems. Discharge Plan Discharge Patient Disposition: Home Clinical Impression: Lumbar radiculopathy Condition: Stable Prescriptions: New hydrocodone-acetaminophen 5-325 mg tablet 1 tab PO Q6H PRN (Reason: pain) Qty: 10 RF: 0 diclofenac sodium 75 mg tablet,delayed release (DR/EC) 75 mg PO Q12H PRN (Reason: pain) Qty: 20 RF: 0 tizanidine 4 mg capsule 4 mg PO Q6H PRN (Reason: muscle spasticity) Qty: 20 RF: 0 prednisone 20 mg tablet 20 mg PO BID 7 Days Qty: 15 RF: 0 Discontinued methocarbamol 750 mg tablet 750 mg PO TID 5 Days Qty: 15 RF: 0 diclofenac sodium [Voltaren] 1 % gel 4 g topical QID Qty: 100 RF: 0 naproxen [Naprosyn] 500 mg tablet 500 mg PO BID PRN (Reason: pain) Qty: 20 RF: 0 No Action buspirone 5 mg tablet 5 mg PO BID RF: 0 lisinopril 30 mg tablet 30 mg PO DAILY Qty: 30 RF: 2 sulfamethoxazole-trimethoprim 800-160 mg tablet 1 tab PO BID 14 Days Qty: 28 RF: 0 albuterol sulfate [ProAir HFA] 90 mcg/actuation HFA aerosol inhaler 2 puff inhalation Q6H PRN (Reason: shortness of breath or wheezing) Qty: 8.5 RF: 0 prednisone 20 mg tablet 40 mg PO DAILY 5 Days Qty: 10 RF: 0 cetirizine 10 mg tablet,chewable 10 mg PO DAILY PRN (Reason: allergy symptoms) Qty: 30 RF: 3 oxycodone 5 mg tablet 5 mg PO Q4H PRN (Reason: pain) Qty: 6 RF: 0 Discharge Orders: Discharge ED (Routine); Ordered 04/10/21 Ordered By: Jorge Lord Referrals: Shiraz Barragan PA [Primary Care Provider] - Patient Instructions: Opioid Safety Coding Level of Care Code ED Job Specification Writer for Trinyg Fwd Exam Comprehensive
[2021-04-10] MEDS: morphine 4 mg/mL SDV 1 mL IVP ×2 (07:02→07:32)
[2021-04-10] MEDS: HYDROmorphone 1 mg/mL INJ 1 mL IVP ×2 (08:46→09:58)
== END 2021-04-10 10:10 | disposition home or self-care (01) ==
PROVIDERS: Emergency Provider Family Medicine; PCP Emergency Medicine
DX: M54.16 Radiculopathy, lumbar region (principal); F17.210 Nicotine dependence, cigarettes, uncomplicated; Z79.891 Long term (current) use of opiate analgesic
CPT/HCPCS: 96372; 96374; 96375; 96376; 99284; J1100; J1170; J1885; J2270; J2360

== ENCOUNTER → 2021-10-25 09:10 | Outpatient (BNVA) | payer MEDICAID, SELFPAY | PROVIDERS: PCP Emergency Medicine; Visit Provider Emergency Medicine | DX: J02.9 Acute pharyngitis, unspecified (principal); R68.89 Other general symptoms and signs; Z20.822 Contact with and (suspected) exposure to COVID-19 | CPT/HCPCS: 87071; 87400; 87635; 87880 ==

== ENCOUNTER 2021-10-30 21:57 | Inpatient (IN) | payer MEDICAID, SELFPAY ==
[2021-10-30 22:38] VITALS: PULSE 108; RESP 16; TEMP 36.7; O2SAT 96
--- NOTE | 2021-10-31 00:48 | W.ED.BACK ---
HPI - Back Pain/Injury General: Chief Complaint: Back Pain/Injury Stated Complaint: Back and neck pain, dizzy Time Seen by Provider: 10/31/21 00:47 History of Present Illness: 21-year-old male patient comes in with general complaints. Patient reports difficulty walking, increased back pain, nausea and vomiting for the last 3 days. [place] and has noticeable scratches to his skin from where he was going through the brush. Patient's review of the record notes to be chronic back pain, smoking, major depression, ADHD, GERD and intermittent asthma. Associated symptoms: Reports nausea and vomiting Review of Systems General: Reports: 10 or more systems reviewed and unremarkable except in HPI and below Const: Reports: malaise Card: Denies: chest pain Resp: Denies: dyspnea GI: Reports: nausea and vomiting Musc: Reports: back pain Skin/Breast: Denies: rash PFSH ED PFSH: Medical History ADHD Asthma Chronic back pain greater than 3 months duration GERD with apnea Major depression Mild intermittent asthma with (acute) exacerbation Smoking Surgical History No pertinent past surgical history Social History Smoking and tobacco status: current every day smoker cigarettes Packs smoked per day: 1 Quit status (tobacco): not considering quitting Second hand smoke exposure: Yes Alcohol intake: never Desire information about alcohol rehabilitation?: No Desire information about substance/drug rehabilitation?: No History of recent travel: No Current gender identity: Male Physical Exam Const: COMMON NORMALS: alert HENMT: COMMON NORMALS: normocephalic HEAD & SCALP: normocephalic Resp: COMMON NORMALS: normal respiratory effort and clear to auscultation bilaterally AUSCULTATION: clear to auscultation bilaterally Cardio: COMMON NORMALS: regular rate and regular rhythm RATE: regular rate RHYTHM: regular rhythm GI: AUSCULTATION: Yes normoactive bowel sounds PALPATION: No Tenderness to palpation present (GI) Extremity: COMMON NORMALS: full ROM Neuro: SENSORIUM/ORIENTATION: Yes alert Skin: TRAUMA: abrasion (Multiple superficial abrasions to the abdomen and arms) and puncture (Nursing visualized track mejia to the arms) Course Vital Signs: Vital signs: Vital Signs Temperature 98.0 F 10/30/21 22:38 Pulse Rate 108 H 10/30/21 22:38 Respiratory Rate 16 10/30/21 22:38 Pulse Oximetry 96 10/30/21 22:38 MDM - Back Pain/Injury Medical Decision Making 21-year-old male comes in today with feeling of malaise, restlessness, body aches, and nausea with some vomiting. Patient reports illness for the last 2 to 3 days. 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 On exam patient has some superficial abrasions to his skin, he [place] Lungs are clear to auscultation. Vital signs are normal. Differential diagnosis includes but not limited to dehydration, rhabdomyolysis, acute kidney injury, methamphetamine intoxication. Laboratory values noted a hemoglobin of 16.7, platelets 447, CMP noted a creatinine of 9.8, potassium 5.5, CPK 13,000. Reviewed exam with Dr. Patel who recommended patient be admitted ICU for acute kidney injury and rhabdomyolysis. Discussed this with patient who agreed to plan. Labs : 10/31/21 01:07 10/31/21 01:07 Laboratory Results WBC 11.9 10^3/uL (4.0-10.0) H 10/31/21 01:07 RBC 5.64 10^6/uL (4.1-5.3) H 10/31/21 01:07 Hgb 16.7 g/dL (11.7-16.6) H 10/31/21 01:07 Hct 47.2 % (42.0-52.0) 10/31/21 01:07 MCV 83.7 fl (80-94) 10/31/21 01:07 MCH 29.6 pg (28.0-34.0) 10/31/21 01:07 MCHC 35.4 g/dL (30.0-36.0) 10/31/21 01:07 RDW 12.6 % (12.1-15.1) 10/31/21 01:07 Plt Count 447 10^3/cmm (130-400) H 10/31/21 01:07 MPV 9.2 fL (7.4-10.4) 10/31/21 01:07 Neut % (Auto) 85.6 % 10/31/21 01:07 Lymph % (Auto) 10.5 % 10/31/21 01:07 [place] % (Auto) 3.3 % 10/31/21 01:07 Eos % (Auto) 0.0 % 10/31/21 01:07 Baso % (Auto) 0.2 % 10/31/21 01:07 Neut # (Auto) 10.17 10^3/uL (1.8-7.7) H 10/31/21 01:07 Lymph # (Auto) 1.3 10^3/uL (0.8-4.8) 10/31/21 01:07 [place] # (Auto) 0.4 10^3/uL (0.2-0.9) 10/31/21 01:07 Eos # (Auto) 0.0 10^3/uL (0.0-0.8) 10/31/21 01:07 Baso # (Auto) 0.0 10^3/uL (0.0-0.1) 10/31/21 01:07 Nucleated RBC % (auto) 0 % 10/31/21 01:07 Nucleated RBCs # 0.0 /100WBC 10/31/21 01:07 Sodium 134 mmol/L (136-145) L 10/31/21 01:07 Potassium 5.5 mmol/L (3.5-5.1) H 10/31/21 01:07 Chloride 89 mmol/L (98-107) L 10/31/21 01:07 Carbon Dioxide 15 mmol/L (22-29) L 10/31/21 01:07 Anion Gap 35.5 (5-19) H 10/31/21 01:07 BUN 66 mg/dL (6-20) H 10/31/21 01:07 Creatinine 9.8 mg/dL (0.7-1.2) H* 10/31/21 01:07 GFR Calculation 6.6 mL/min (90-130) L 10/31/21 01:07 Glucose 104 mg/dL (65-115) 10/31/21 01:07 Calculated Osmolality 297 mOsm/kg (285-295) H 10/31/21 01:07 Calcium 9.5 mg/dL (8.5-10.5) 10/31/21 01:07 Total Bilirubin 0.3 mg/dL (0.15-1.2) 10/31/21 01:07 AST 25 U/L (0-40) 10/31/21 01:07 ALT 28 U/L (0-41) 10/31/21 01:07 Alkaline Phosphatase 80 IU/L (40-130) 10/31/21 01:07 Creatine Kinase 1311 U/L (39-308) H* 10/31/21 01:07 Total Protein 9.3 g/dL (6.6-8.7) H 10/31/21 01:07 Albumin 5.4 g/dL (3.5-5.2) H 10/31/21 01:07 Globulin 3.9 g/dL (1.3-4.6) 10/31/21 01:07 Ethyl Alcohol < 10 mg/dL (0-10) 10/31/21 01:07 Discharge Plan Discharge Patient Disposition: Admitted As Inpatient Clinical Impression: Acute kidney injury Rhabdomyolysis Qualifiers: Rhabdomyolysis type: non-traumatic Qualified Code(s): M62.82 - Rhabdomyolysis Condition: Stable Coding Level of Care Code ED Fashion Coordinator for Maddy Fwd Exam Detailed
[2021-10-31] MEDS: sodium chloride 0.9% 1,000 ML 999 ML IV ×3 (01:09→02:26)
[2021-10-31 01:14] LABS: Basophils % 0.2 %; Hematocrit 47.2 % (42.0-52.0); Hemoglobin 16.7 g/dL (11.7-16.6); Lymphocytes # 1.3 10^3/uL (0.8-4.8); Lymphocytes % 10.5 %; Mean Corpuscular HGB Conc 35.4 g/dL (30.0-36.0); Mean Corpuscular Hemoglobin 29.6 pg (28.0-34.0); Mean Corpuscular Volume 83.7 fl (80-94); Mean Platelet Volume 9.2 fL (7.4-10.4); Monocytes # 0.4 10^3/uL (0.2-0.9); Monocytes % 3.3 %; Neutrophils # 10.17 10^3/uL (1.8-7.7); Neutrophils % 85.6 %; Nucleated Red Blood Cells % 0 %; Platelet Count 447 10^3/cmm (130-400); Red Blood Count 5.64 10^6/uL (4.1-5.3); Red Cell Distribution Width 12.6 % (12.1-15.1); White Blood Count 11.9 10^3/uL (4.0-10.0)
[2021-10-31] MEDS: ibuprofen 800 mg tablet PO (01:31)
[2021-10-31 01:34] LABS: Alanine Aminotransferase 28 U/L (0-41); Albumin Level 5.4 g/dL (3.5-5.2); Alkaline Phosphatase 80 IU/L (40-130); Blood Urea Nitrogen 66 mg/dL (6-20); Calcium 9.5 mg/dL (8.5-10.5); Carbon Dioxide 15 mmol/L (22-29); Chloride 89 mmol/L (98-107); Globulin 3.9 g/dL (1.3-4.6); Glomerular Filtration Rate 6.6 mL/min (90-130); Glucose 104 mg/dL (65-115); Osmolality Calculated 297 mOsm/kg (285-295); Sodium 134 mmol/L (136-145); Total Bilirubin 0.3 mg/dL (0.15-1.2); Total Protein 9.3 g/dL (6.6-8.7)
[2021-10-31 01:36] LABS: Alcohol Level < 10 mg/dL (0-10)
[2021-10-31 01:37] LABS: Anion Gap 35.5 (5-19); Aspartate Amino Transferase 25 U/L (0-40); Potassium 5.5 mmol/L (3.5-5.1)
[2021-10-31 01:38] LABS: Creatine Phosphokinase 1311 U/L (39-308)
--- NOTE | 2021-10-31 02:21 | USR_ITS ---
PROCEDURE INFORMATION: Exam: US Retroperitoneal; Complete; Kidneys and Bladder Exam date and time: 10/31/2021 3:48 AM Age: 21 years old Clinical indication: Other: Gabe TECHNIQUE: Imaging protocol: Real-time ultrasound of the retroperitoneum with image documentation. Complete exam focused on the kidneys and bladder. COMPARISON: CT abdomen pelvis w con* [id number] 08/07/2020 4:55 PM FINDINGS: Right kidney: Right kidney measures 11.3 cm in length. No mass. No hydronephrosis. No stones. Left kidney: The left kidney measures 12.7 cm in length. No mass. No hydronephrosis. No stones. Urinary bladder: Bladder volume measures 264 mL. Bilateral ureteral jets were noted. No bladder wall thickening or diverticulum noted. Prostate: Prostate measures 2.6 x 3.9 x 2.2 cm, within normal limits. US/US renal BI* [id number] IMPRESSION: No acute findings.
--- NOTE | 2021-10-31 02:23 | P.HP_ITS ---
Providers/Chief Complaint Admitting Physician: Jordan Johnson MD Chief Complaint: Back and neck pain, dizzy History of Present Illness Ted Ordonez is a 21 year old male with no significant past medical history, he is current meth drug user , last time he used meth was 2 days back, came in with chief complaint of , nausea vomiting generalized body pain, going on for the last 3 days, he currently denies chest pain shortness of breath, fever cough, abdominal pain, headache, dizziness palpitation. Upon arrival to ER he was worked up for above-mentioned complaint: Pertinent labs: WBC:11.9 , H&H:16.7/47 , plt : 447 , serum sodium 134 serum potassium 5.5, BUN / serum creatinine: 66/9.8 , serum bicarb:15 , CK:1311 , AST ALT alk phos: Normal Patient was given 3 L normal saline bolus in the ER. Review of Systems General: Reports: 10 or more systems reviewed and unremarkable except in HPI and below Narrative: 66-year-old currently not in acute distress being admitted for chest pain evaluation Const: Denies: fever(s), chills, body aches, change in appetite or diaphoresis Card: Denies: palpitations, edema, swelling of feet/ankles, dyspnea on exertion, orthopnea or leg pain with exertion Resp: Denies: dyspnea, productive cough, wheezing or pain on inspiration GI: Denies: abdominal pain, nausea, vomiting, diarrhea or constipation : Denies: flank pain or difficulty urinating Musc: Denies: back pain, extremity pain or extremity swelling Neuro: Denies: headache(s), difficulty walking or confusion Medications/Allergies Home Medications Medication Instructions Recorded Confirmed Last Taken Type cetirizine 10 mg chewable tablet 10 mg PO DAILY PRN #30 tab 11/10/19 10/25/21 Unknown Rx buspirone 5 mg tablet 5 mg PO BID 06/07/20 10/25/21 07/07/20 History lisinopril 30 mg tablet 30 mg PO DAILY #30 tab 11/10/20 10/25/21 Unknown Rx albuterol sulfate 90 mcg/actuation 2 puff INHALATION Q6H PRN #8.5 g 01/24/21 0 10/25/21 Unknown Rx aerosol inhaler (ProAir HFA) cyclobenzaprine 10 mg tablet 10 mg PO TID 10/18/21 10/25/21 Unknown History diphenoxylate-atropine 2.5 2 tab PO Q6H PRN #20 tab 10/18/21 10/25/21 Unknown Rx mg-0.025 mg tablet (Lomotil) ondansetron HCl 4 mg tablet 4 mg PO Q8H 10/18/21 10/25/21 Unknown History promethazine 25 mg tablet 25 mg PO Q4H PRN #20 tab 10/18/21 10/25/21 Unknown Rx tizanidine 2 mg tablet 2 mg PO BID PRN #20 tab 10/18/21 10/25/21 Unknown Rx azithromycin 250 mg tablet See Rx Instructions PO .COMPLEX #6 10/25/21 10/25/21 Unknown Rx tab hzlxbkicqmoiarc-hogpyubddurnnam-UX 7.5 ml PO Q6H PRN #160 ml 10/25/21 10/25/21 Unknown Rx 2 mg-30 mg-10 mg/5 mL oral syrup (Bromfed DM) oseltamivir 75 mg capsule (Tamiflu) 75 mg PO BID 5 Days #10 cap 10/25/21 10/25/21 Unknown Rx Allergies Allergy/AdvReac Type Severity Reaction Status Date / Time tramadol Allergy hives Verified 10/30/21 22:46 PFSH Acute PFSH: Medical History ADHD Asthma Chronic back pain greater than 3 months duration GERD with apnea Major depression Mild intermittent asthma with (acute) exacerbation Smoking Surgical History No pertinent past surgical history Social History Smoking and tobacco status: current every day smoker cigarettes Packs smoked per day: 1 Quit status (tobacco): not considering quitting Second hand smoke exposure: Yes Alcohol intake: never Desire information about alcohol rehabilitation?: No Desire information about substance/drug rehabilitation?: No History of recent travel: No Current gender identity: Male Vitals/I&O/Wt Last Vital Signs Temp 98.0 F 10/30/21 22:38 Pulse 108 H 10/30/21 22:38 Resp 16 10/30/21 22:38 Pulse Ox 96 10/30/21 22:38 Weight last 48 hrs Weight 102.058 kg Physical Exam Const: COMMON NORMALS: patient oriented x3 HENMT: COMMON NORMALS: normocephalic and atraumatic HEAD & SCALP: normocephalic and atraumatic Chest: CHEST: Yes Symmetrical chest wall rise Resp: COMMON NORMALS: No use of accessory muscles and clear to auscultation bilaterally EFFORT & INSPECTION: Yes symmetric chest movement AUSCULTATION: clear to auscultation bilaterally Cardio: COMMON NORMALS: regular rate, regular rhythm, S1 normal heart sound present, S2 normal heart sound present, No gallops present (Cardio), No murmurs present (Cardio), No rub (Cardio) and Peripheral pulses 2+ throughout RATE: regular rate RHYTHM: regular rhythm HEART SOUNDS: S1 normal heart sound present and S2 normal heart sound present PERIPHERAL PULSES: Peripheral pulses 2+ throughout GI: COMMON NORMALS: Normal to inspection, nondistended, normoactive bowel soun ds present, Soft to palpation, non-tender, No hepatosplenomegaly present and no masses AUSCULTATION: Yes normoactive bowel sounds PALPATION: Yes Soft to palpation and Yes No hepatosplenomegaly present RECTAL EXAM: Yes deferred Extremity: COMMON NORMALS: no clubbing, cyanosis or edema and no pedal edema Neuro: COMMON NORMALS: patient oriented x3 Data : 10/31/21 05:17 10/31/21 01:07 A&P Assessment and plan (1) Rhabdomyolysis: Status: Acute Qualifiers: Rhabdomyolysis type: non-traumatic Qualified Code(s): M62.82 - Rhabdomyolysis (2) Acute kidney injury: Status: Acute (3) Nausea and vomiting: Status: Acute Qualifiers: Vomiting type: unspecified Qualified Code(s): R11.2 - Nausea with vomiting, unspecified (4) Asthma: Status: Acute Qualifiers: Asthma complication type: uncomplicated Asthma persistence: intermittent Asthma severity: mild Qualified Code(s): J45.20 - Mild intermittent asthma, uncomplicated (5) Hyperkalemia: Status: Acute Plan 21 year old male with no significant past medical history, he is current meth drug user , last time he used meth was 2 days back, came in with chief complaint of , nausea vomiting generalized body pain, going on for the last 3 days. Assessment: PAPO: Likely prerenal, cannot conclusively rule out drug-induced, ATN Hyperkalemia Hyponatremia Plan: Renal ultrasound Random urine sodium Random urine creatinine Random urine total protein Fena Intake output charting Insert Medina catheter Urinalysis Current plan is to give him 3 L normal saline bolus followed by, normal saline at 125 cc an hour Monitor BMP Hyperkalemia cocktail has been given Consider nephrology consult in the morning CODE STATUS: Full code DVT prophylaxis: On heparin Attestations Medical Necessity Statement*: Patient needs to be in hospital for management of acute kidney injury. Anticipated length of stay: Greater than 2 midnights Time Spent in Patient Care: Greater than 35 minutes (>than 50% of time spent in counselling and/or direct pt care on unit) . Critical Care Time: The high probability of a clinically significant, sudden or life threatening deterioration of the patient's [] system(s) required my full and direct attention, intervention and personal management. The critical care time is as shown. This time is in addition to time spent performing any reported procedures but includes the following: [x] Data and vital sign review and interpretation [x] Patient assessment, examination and intervention [x] Documentation [x] Medication orders and management Critical Care Time (min): 30 Coding Level of Care Code Acute Inpatient Pharmacist for [facility] Fwd Exam Detailed Diagnoses Rhabdomyolysis M62.82 Rhabdomyolysis type: non-traumatic Acute kidney injury N17.9 Nausea and vomiting R11.2 Vomiting type: unspecified Asthma J45.20 Asthma complication type: uncomplicated Asthma persistence: intermittent Asthma severity: mild Hyperkalemia E87.5
[2021-10-31] MEDS: sodium chloride 0.9% 1,000 ML 125 ML IV (03:22)
[2021-10-31] MEDS: dextrose 50% syringe 50 mL 25 ML IVP (03:22)
[2021-10-31] MEDS: insulin regular-human 5 UNIT in SYRINGE 1 EACH IVP (03:22)
[2021-10-31 03:24] LABS: Glucose Point of Care 114 mg/dL (70-110)
[2021-10-31 03:32] VITALS: RESP 22; O2SAT 96
[2021-10-31 05:22] LABS: Basophils % 0.1 %; Hematocrit 41.3 % (42.0-52.0); Hemoglobin 14.5 g/dL (11.7-16.6); Mean Corpuscular HGB Conc 35.1 g/dL (30.0-36.0); Mean Corpuscular Hemoglobin 29.9 pg (28.0-34.0); Mean Corpuscular Volume 85.2 fl (80-94); Mean Platelet Volume 9.2 fL (7.4-10.4); Monocytes # 0.9 10^3/uL (0.2-0.9); Monocytes % 7.9 %; Neutrophils # 9.16 10^3/uL (1.8-7.7); Neutrophils % 82.5 %; Nucleated Red Blood Cells % 0 %; Platelet Count 353 10^3/cmm (130-400); Red Blood Count 4.85 10^6/uL (4.1-5.3); Red Cell Distribution Width 12.6 % (12.1-15.1); White Blood Count 11.1 10^3/uL (4.0-10.0)
[2021-10-31 05:37] LABS: INR 1.08 (0.8-1.2)
[2021-10-31 05:40] LABS: Amphetamines Screen Urine Positive (Negative); Barbiturates Screen Urine Negative (Negative); Benzodiazepines Screen Urine Negative (Negative); Cocaine Screen Urine Negative (Negative); Opiate Screen Urine Positive (Negative); PCP Screen Urine Negative (Negative); THC Screen Urine Positive (Negative)
[2021-10-31 05:43] LABS: Anion Gap 25.8 (5-19); Blood Urea Nitrogen 66 mg/dL (6-20); Calcium 8.2 mg/dL (8.5-10.5); Carbon Dioxide 16 mmol/L (22-29); Chloride 97 mmol/L (98-107); Glomerular Filtration Rate 8.8 mL/min (90-130); Glucose 125 mg/dL (65-115); Magnesium 2.7 mg/dL (1.7-2.3); Osmolality Calculated 299 mOsm/kg (285-295); Phosphorus 6.5 mg/dL (2.5-4.5); Potassium 4.8 mmol/L (3.5-5.1); Sodium 134 mmol/L (136-145)
[2021-10-31 05:44] LABS: Creatinine Urine, Random 261 mg/dL (39-259)
[2021-10-31 05:54] LABS: Add Urine Microscopic? YES; Bilirubin Urine Neg (Negative); Blood Urine 3+ (Negative); Glucose Urine UA Trace (Normal); Ketones Urine Negative (Negative); Leukocyte Esterase Urine Negative (Negative); Nitrate Urine Negative (Negative); Protein Urine 1+ (Negative); Specific Gravity, Urine 1.015 (1.005-1.030); Urine Appearance Clear (CLEAR); Urine Color Yellow (Yellow); Urobilinogen Urine Norm (Negative); pH Urine 5 (5-7)
[2021-10-31 05:55] LABS: Add Urine Culture? No; Amorphous Sediment Urine 2+ /hpf; Bacteria Urine TRACE /hpf; Mucus Urine 1+ /hpf; RBC Urine 0-4 /hpf (0-2); Squamous Epithelial Cell Urine 0-4 /hpf (0-5)
[2021-10-31 06:00] VITALS: BP 142/71; PULSE 81; RESP 21; O2SAT 95
[2021-10-31 06:01] LABS: Urine Protein Random 70 mg/dL; Urine Random Sodium 64 mmol/L
[2021-10-31] MEDS: heparin 5,000 unit/mL INJ 1 mL 5000 UNIT SUBCUT (07:06)
[2021-10-31] MEDS: sodium bicarbonate 650 mg Tablet PO (08:40)
--- NOTE | 2021-10-31 12:41 | PM.DCS ---
Discharge Providers Date of Admission: 10/31/21 02:25 Date of Discharge: October 31, 2021 Attending Provider at Admission: Jordan Johnson MD Attending Provider at Discharge: Bernardino Chawla MD Diagnoses at Discharge Discharge Diagnosis (1) Rhabdomyolysis: Status: Acute Qualifiers: Rhabdomyolysis type: non-traumatic Qualified Code(s): M62.82 - Rhabdomyolysis (2) Acute kidney injury: Status: Acute (3) Nausea and vomiting: Status: Acute Qualifiers: Vomiting type: unspecified Qualified Code(s): R11.2 - Nausea with vomiting, unspecified (4) Asthma: Status: Acute Qualifiers: Asthma severity: mild Asthma persistence: intermittent Asthma complication type: uncomplicated Qualified Code(s): J45.20 - Mild intermittent asthma, uncomplicated (5) Hyperkalemia: Status: Acute Reason for Visit Reason for Visit: Back and neck pain, dizzy Hospital Course Hospital Course Please note this patient has left AMA before my examination, I was told by the ER coordinator that he left AMA this morning Discharge Data Studies Completed and Pending Completed Studies During Hospitalization Category Date Time Status US renal BI* [id number] Routine Ultrasound 10/31/21 02:21 Completed Pending at discharge Category Date Time Status Basic Metabolic Panel AM LABS Lab 11/01/21 04:00 Ordered Basic Metabolic Panel AM LABS Lab 11/02/21 04:00 Ordered Basic Metabolic Panel AM LABS Lab 11/03/21 04:00 Ordered Complete Blood Count w/Auto AM LABS Lab 11/01/21 04:00 Ordered Complete Blood Count w/Auto AM LABS Lab 11/02/21 04:00 Ordered Complete Blood Count w/Auto AM LABS Lab 11/03/21 04:00 Ordered Magnesium AM LABS Lab 11/01/21 04:00 Ordered Phosphorus AM LABS Lab 11/01/21 04:00 Ordered Prothrombin Time INR AM LABS Lab 11/01/21 04:00 Ordered Radiology Impressions Renal Ultrasound 10/31/21 02:21 IMPRESSION: No acute findings. Laboratory Results WBC 11.1 10^3/uL (4.0-10.0) H 10/31/21 05:17 RBC 4.85 10^6/uL (4.1-5.3) 10/31/21 05:17 Hgb 14.5 g/dL (11.7-16.6) 10/31/21 05:17 Hct 41.3 % (42.0-52.0) L 10/31/21 05:17 MCV 85.2 fl (80-94) 10/31/21 05:17 MCH 29.9 pg (28.0-34.0) 10/31/21 05:17 MCHC 35.1 g/dL (30.0-36.0) 10/31/21 05:17 RDW 12.6 % (12.1-15.1) 10/31/21 05:17 Plt Count 353 10^3/cmm (130-400) 10/31/21 05:17 MPV 9.2 fL (7.4-10.4) 10/31/21 05:17 Neut % (Auto) 82.5 % 10/31/21 05:17 Lymph % (Auto) 9.0 % 10/31/21 05:17 [place] % (Auto) 7.9 % 10/31/21 05:17 Eos % (Auto) 0.0 % 10/31/21 05:17 Baso % (Auto) 0.1 % 10/31/21 05:17 Neut # (Auto) 9.16 10^3/uL (1.8-7.7) H 10/31/21 05:17 Lymph # (Auto) 1.0 10^3/uL (0.8-4.8) 10/31/21 05:17 [place] # (Auto) 0.9 10^3/uL (0.2-0.9) 10/31/21 05:17 Eos # (Auto) 0.0 10^3/uL (0.0-0.8) 10/31/21 05:17 Baso # (Auto) 0.0 10^3/uL (0.0-0.1) 10/31/21 05:17 Nucleated RBC % (auto) 0 % 10/31/21 05:17 Nucleated RBCs # 0.0 /100WBC 10/31/21 05:17 PT 14.30 SECONDS (12.1-14.9) 10/31/21 05:17 INR 1.08 (0.8-1.2) 10/31/21 05:17 Sodium 134 mmol/L (136-145) L 10/31/21 05:17 Potassium 4.8 mmol/L (3.5-5.1) 10/31/21 05:17 Chloride 97 mmol/L (98-107) L 10/31/21 05:17 Carbon Dioxide 16 mmol/L (22-29) L 10/31/21 05:17 Anion Gap 25.8 (5-19) H 10/31/21 05:17 BUN 66 mg/dL (6-20) H 10/31/21 05:17 Creatinine 7.7 mg/dL (0.7-1.2) H* 10/31/21 05:17 GFR Calculation 8.8 mL/min (90-130) L 10/31/21 05:17 Glucose 125 mg/dL (65-115) H 10/31/21 05:17 POC Glucose 114 mg/dL (70-110) H 10/31/21 03:09 Calculated Osmolality 299 mOsm/kg (285-295) H 10/31/21 05:17 Calcium 8.2 mg/dL (8.5-10.5) L 10/31/21 05:17 Phosphorus 6.5 mg/dL (2.5-4.5) H 10/31/21 05:17 Magnesium 2.7 mg/dL (1.7-2.3) H 10/31/21 05:17 Total Bilirubin 0.3 mg/dL (0.15-1.2) 10/31/21 01:07 AST 25 U/L (0-40) 10/31/21 01:07 ALT 28 U/L (0-41) 10/31/21 01:07 Alkaline Phosphatase 80 IU/L (40-130) 10/31/21 01:07 Creatine Kinase 1311 U/L (39-308) H* 10/31/21 01:07 Total Protein 9.3 g/dL (6.6-8.7) H 10/31/21 01:07 Albumin 5.4 g/dL (3.5-5.2) H 10/31/21 01:07 Globulin 3.9 g/dL (1.3-4.6) 10/31/21 01:07 Urine Color Yellow (Yellow) 10/31/21 05:15 Urine Appearance Clear (CLEAR) 10/31/21 05:15 Urine pH 5 (5-7) 10/31/21 05:15 Ur Specific [place] 1.015 (1.005-1.030) 10/31/21 05:15 Urine Protein 1+ (Negative) H 10/31/21 05:15 Urine Glucose (UA) Trace (Normal) H 10/31/21 05:15 Urine Ketones Negative (Negative) 10/31/21 05:15 Urine Blood 3+ (Negative) H 10/31/21 05:15 Urine Nitrate Negative (Negative) 10/31/21 05:15 Urine Bilirubin Neg (Negative) 10/31/21 05:15 Urine Urobilinogen Norm mg/dL (Negative) 10/31/21 05:15 Ur Leukocyte Esterase Negative (Negative) 10/31/21 05:15 Urine RBC 0-4 /hpf (0-2) H 10/31/21 05:15 Urine WBC 5-10 /hpf (0-5) H 10/31/21 05:15 Ur Squamous Epith Cells 0-4 /hpf (0-5) H 10/31/21 05:15 Amorphous Sediment 2+ /hpf 10/31/21 05:15 Urine Bacteria Trace /hpf (NONE) 10/31/21 05:15 Urine Mucus 1+ /hpf 10/31/21 05:15 U Random Total Protein 70 mg/dL 10/31/21 05:15 Ur Random Sodium 64 mmol/L 10/31/21 05:15 Urine Creatinine 261 mg/dL (39-259) H 10/31/21 05:15 Urine Opiates Screen Positive ng/mL (Negative) H 10/31/21 05:15 Ur Barbiturates Screen Negative ng/mL (Negative) 10/31/21 05:15 Ur Phencyclidine Scrn Negative ng/mL (Negative) 10/31/21 05:15 Ur Amphetamines Screen Positive ng/mL (Negative) H 10/31/21 05:15 U Benzodiazepines Scrn Negative ng/mL (Negative) 10/31/21 05:15 Urine Cocaine Screen Negative ng/mL (Negative) 10/31/21 05:15 U Marijuana (THC) Screen Positive ng/mL (Negative) H 10/31/21 05:15 Ethyl Alcohol < 10 mg/dL (0-10) 10/31/21 01:07 Vitals Last Vital Signs Temp 98.0 F 10/30/21 22:38 Pulse 81 10/31/21 06:00 Resp 21 H 10/31/21 06:00 BP 142/71 10/31/21 06:00 Pulse Ox 95 10/31/21 06:00 Discharge Plan Discharge Patient Disposition: Home Condition: Stable Prescriptions: No Action buspirone 5 mg tablet 5 mg PO BID 0RF lisinopril 30 mg tablet 30 mg PO DAILY Qty: 30 2RF albuterol sulfate [ProAir HFA] 90 mcg/actuation HFA aerosol inhaler 2 puff inhalation Q6H PRN (Reason: shortness of breath or wheezing) Qty: 8.5 0RF cetirizine 10 mg tablet,chewable 10 mg PO DAILY PRN (Reason: allergy symptoms) Qty: 30 3RF cyclobenzaprine 10 mg tablet 10 mg PO TID 0RF ondansetron HCl 4 mg tablet 4 mg PO Q8H 0RF tizanidine 2 mg tablet 2 mg PO BID PRN (Reason: muscle spasticity) Qty: 20 0RF Rx Instructions: may take 2 to 3 times daily. azithromycin 250 mg tablet See Rx Instructions PO .COMPLEX Qty: 6 0RF Rx Instructions: take 2 tablets today (day 1), then one tablet for 4 days (days 2-5) PO oseltamivir [Tamiflu] 75 mg capsule 75 mg PO BID 5 Days Qty: 10 0RF quetiapine 25 mg Tablet 25 mg PO DAILY 0RF gabapentin 400 mg Capsule 400 mg PO BID 0RF propranolol 10 mg Tablet 10 mg PO BID 0RF omeprazole 20 mg Capsule,Delayed Release(Dr/Ec) 20 mg PO DAILY 0RF Patient Instructions: Opioid Safety Discharge Attestations Time Spent in Discharge Care*: less than 30 min Quality Metrics Clinical Quality Measures [ No reported AMI, CVA or VTE this stay] Coding Level of Care Code Acute g DC note Diagnoses Rhabdomyolysis M62.82 Rhabdomyolysis type: non-traumatic Acute kidney injury N17.9 Nausea and vomiting R11.2 Vomiting type: unspecified Asthma J45.20 Asthma severity: mild Asthma persistence: intermittent Asthma complication type: uncomplicated Hyperkalemia E87.5
== END 2021-10-31 09:11 | disposition left against medical advice (07) | DRG 683 ==
LOC: ER 10-31 01:46 → ER IP 10-31 02:45
PROVIDERS: Nurse Practitioner Family; Admitting Provider Internal Medicine; Emergency Provider Emergency Medicine; Visit Provider Internal Medicine
DX: N17.9 Acute kidney failure, unspecified (principal); E87.1 Hypo-osmolality and hyponatremia; M62.82 Rhabdomyolysis; R11.2 Nausea with vomiting, unspecified; J45.20 Mild intermittent asthma, uncomplicated; E87.5 Hyperkalemia; Z53.21 Procedure and treatment not carried out due to patient leaving prior to being seen by health care provider; F15.10 Other stimulant abuse, uncomplicated; F17.210 Nicotine dependence, cigarettes, uncomplicated; G89.29 Other chronic pain; M54.9 Dorsalgia, unspecified; F32.A Depression, unspecified; F90.9 Attention-deficit hyperactivity disorder, unspecified type
CPT/HCPCS: 36416; 76770; 80048; 80053; 80306; 80307; 81001; 82550; 82575; 82962; 83735; 84100; 84156; 84300; 85025; 85610; 96361; 96372; 96374; 99285; G0378; J1644; J1815; J7030

== ENCOUNTER 2021-11-01 15:35 | Emergency (ER) | payer MEDICAID, SELFPAY ==
[2021-11-01 16:01] VITALS: BP 151/78; PULSE 91; RESP 16; TEMP 36.9; O2SAT 98; BMI 32.8
[2021-11-01 17:09] LABS: Basophils % 0.6 %; Eosinophils # 0.2 10^3/uL (0.0-0.8); Eosinophils % 2.5 %; Hemoglobin 14.9 g/dL (11.7-16.6); Lymphocytes % 46.6 %; Mean Corpuscular HGB Conc 34.7 g/dL (30.0-36.0); Mean Corpuscular Hemoglobin 29.7 pg (28.0-34.0); Mean Corpuscular Volume 85.7 fl (80-94); Mean Platelet Volume 9.8 fL (7.4-10.4); Monocytes # 0.9 10^3/uL (0.2-0.9); Monocytes % 14.2 %; Neutrophils # 2.35 10^3/uL (1.8-7.7); Neutrophils % 35.9 %; Nucleated Red Blood Cells % 0 %; Platelet Count 319 10^3/cmm (130-400); Red Blood Count 5.02 10^6/uL (4.1-5.3); Red Cell Distribution Width 12.9 % (12.1-15.1); White Blood Count 6.5 10^3/uL (4.0-10.0)
--- NOTE | 2021-11-01 17:41 | PC.PHAR ---
pt states he takes care of his own medications-see pharmacy notes in the pharmacy comments
[2021-11-01 18:00] LABS: Alanine Aminotransferase 26 U/L (0-41); Albumin Level 4.5 g/dL (3.5-5.2); Alkaline Phosphatase 62 IU/L (40-130); Anion Gap 16.7 (5-19); Aspartate Amino Transferase 23 U/L (0-40); Blood Urea Nitrogen 25 mg/dL (6-20); Calcium 9.6 mg/dL (8.5-10.5); Carbon Dioxide 19 mmol/L (22-29); Chloride 102 mmol/L (98-107); Globulin 3.1 g/dL (1.3-4.6); Glomerular Filtration Rate 119.8 mL/min (90-130); Glucose 84 mg/dL (65-115); Lipase 33 U/L (13-60); Osmolality Calculated 280 mOsm/kg (285-295); Potassium 4.7 mmol/L (3.5-5.1); Sodium 133 mmol/L (136-145); Total Bilirubin 0.3 mg/dL (0.15-1.2); Total Protein 7.6 g/dL (6.6-8.7)
--- NOTE | 2021-11-01 18:08 | ED_ITS ---
HPI - Abdominal Pain General: Chief Complaint: Abdominal Pain Stated Complaint: abd pain Time Seen by Provider: 11/01/21 18:02 Source: patient Mode of arrival: ambulatory Limitations: no limitations History of Present Illness: 21-year-old male who was seen here yesterday was diagnosed with rhabdomyolysis along with acute kidney injury. Patient had signed out AMA did receive fluids before he signed out AMA. States that today is having some lower abdominal cramping and was concerned about his kidney function and changed her mind and want to come back and get his kidney function rechecked. He denies any vomiting denies any diarrhea states he has been drinking fluids. Associated Symptoms: Denies chills, diarrhea, dysuria, fever(s), nausea and vomiting Review of Systems Const: Denies: fever(s), chills, body aches or change in appetite Eyes: Denies: blurry vision or eye discomfort ENMT: Denies: throat pain or dental pain Card: Denies: chest pain Resp: Denies: dyspnea GI: Reports: abdominal pain; Denies: nausea, vomiting or diarrhea : Denies: dysuria Musc: Denies: neck pain or back pain Skin/Breast: Denies: rash Neuro: Denies: headache(s) Psych: Denies: depression Yonatan/Lymph: Denies: easy bruising All/Imm: Denies: urticaria PFSH ED PFSH: Medical History Acute kidney injury ADHD Asthma Chronic back pain greater than 3 months duration GERD with apnea Hyperkalemia Major depression Mild intermittent asthma with (acute) exacerbation Nausea and vomiting Rhabdomyolysis Smoking Surgical History No pertinent past surgical history Social History Smoking and tobacco status: current every day smoker cigarettes Packs smoked per day: 1 Quit status (tobacco): not considering quitting Second hand smoke exposure: Yes Alcohol intake: never Desire information about alcohol rehabilitation?: No Desire information about substance/drug rehabilitation?: No History of recent travel: No Current gender identity: Male Physical Exam Const: COMMON NORMALS: no acute distress, patient oriented x3 and healthy appearing HENMT: COMMON NORMALS: normocephalic and atraumatic HEAD & SCALP: normocephalic and atraumatic Eye: COMMON NORMALS: Equal, round and reactive pupils present and EOMs intact bilaterally PUPIL: Yes Equal, round and reactive pupils present Neck/C-Spine: COMMON NORMALS: full ROM and supple Chest: COMMONS NORMALS: normal inspection of the chest and normal palpation of entire chest wall Resp: COMMON NORMALS: normal respiratory effort, No retractions, No use of accessory muscles and clear to auscultation bilaterally AUSCULTATION: clear to auscultation bilaterally Cardio: COMMON NORMALS: regular rate, regular rhythm and No murmurs present (Cardio) RATE: regular rate RHYTHM: regular rhythm GI: COMMON NORMALS: Normal to inspection, nondistended, normoactive bowel sounds present, Soft to palpation and no masses PALPATION: Yes Soft to palpation OTHER: lower abd tenderness Extremity: COMMON NORMALS: normal to inspection and full ROM Neuro: COMMON NORMALS: patient oriented x3, moves all extremities and no focal motor deficits Psych: COMMON NORMALS: mental status grossly normal, Normal thought process present and cooperative THOUGHT PROCESS: Normal thought process present Skin: COMMON NORMALS: no rashes or lesions noted and no wounds GENERAL SKIN EXAM: no rashes or lesions noted Course Vital Signs: Vital signs: Vital Signs Temperature 98.4 F 11/01/21 16:01 Pulse Rate 91 11/01/21 16:01 Respiratory Rate 16 11/01/21 16:01 Blood Pressure 151/78 11/01/21 16:01 Pulse Oximetry 98 11/01/21 16:01 MDM - Abdominal Pain Medical Decision Making Patient presents here to have his kidney function rechecked he was in rhabdomyolysis with a creatinine of 8.8 he did receive fluids before he signed out AMA yesterday he has been drinking fluids has been urinating his kidney function is back to normal his CK is dropped as well. His exam here is benign his pain is minimal his white count is normal I do not believe he needs a CT. He is continue to drink fluids he is stable for discharge he is to follow-up his PCP and return if worsening. Lab Data : 11/01/21 16:21 11/01/21 16:31 Labs/Radiology: Laboratory Results WBC 6.5 10^3/uL (4.0-10.0) 11/01/21 16:21 RBC 5.02 10^6/uL (4.1-5.3) 11/01/21 16:21 Hgb 14.9 g/dL (11.7-16.6) 11/01/21 16:21 Hct 43.0 % (42.0-52.0) 11/01/21 16:21 MCV 85.7 fl (80-94) 11/01/21 16:21 MCH 29.7 pg (28.0-34.0) 11/01/21 16:21 MCHC 34.7 g/dL (30.0-36.0) 11/01/21 16:21 RDW 12.9 % (12.1-15.1) 11/01/21 16:21 Plt Count 319 10^3/cmm (130-400) 11/01/21 16:21 MPV 9.8 fL (7.4-10.4) 11/01/21 16:21 Neut % (Auto) 35.9 % 11/01/21 16:21 Lymph % (Auto) 46.6 % 11/01/21 16:21 [place] % (Auto) 14.2 % 11/01/21 16:21 Eos % (Auto) 2.5 % 11/01/21 16:21 Baso % (Auto) 0.6 % 11/01/21 16:21 Neut # (Auto) 2.35 10^3/uL (1.8-7.7) 11/01/21 16:21 Lymph # (Auto) 3.0 10^3/uL (0.8-4.8) 11/01/21 16:21 [place] # (Auto) 0.9 10^3/uL (0.2-0.9) 11/01/21 16:21 Eos # (Auto) 0.2 10^3/uL (0.0-0.8) 11/01/21 16:21 Baso # (Auto) 0.0 10^3/uL (0.0-0.1) 11/01/21 16:21 Nucleated RBC % (auto) 0 % 11/01/21 16:21 Nucleated RBCs # 0.0 /100WBC 11/01/21 16:21 Sodium 133 mmol/L (136-145) L 11/01/21 16:31 Potassium 4.7 mmol/L (3.5-5.1) 11/01/21 16:31 Chloride 102 mmol/L (98-107) 11/01/21 16:31 Carbon Dioxide 19 mmol/L (22-29) L 11/01/21 16:31 Anion Gap 16.7 (5-19) 11/01/21 16:31 BUN 25 mg/dL (6-20) H 11/01/21 16:31 Creatinine 0.8 mg/dL (0.7-1.2) 11/01/21 16:31 GFR Calculation 119.8 mL/min (90-130) 11/01/21 16:31 Glucose 84 mg/dL (65-115) 11/01/21 16:31 Calculated Osmolality 280 mOsm/kg (285-295) L 11/01/21 16:31 Calcium 9.6 mg/dL (8.5-10.5) 11/01/21 16:31 Total Bilirubin 0.3 mg/dL (0.15-1.2) 11/01/21 16:31 AST 23 U/L (0-40) 11/01/21 16:31 ALT 26 U/L (0-41) 11/01/21 16:31 Alkaline Phosphatase 62 IU/L (40-130) 11/01/21 16:31 Creatine Kinase 427 U/L (39-308) H* 11/01/21 16:31 Total Protein 7.6 g/dL (6.6-8.7) 11/01/21 16:31 Albumin 4.5 g/dL (3.5-5.2) 11/01/21 16:31 Globulin 3.1 g/dL (1.3-4.6) 11/01/21 16:31 Lipase 33 U/L (13-60) 11/01/21 16:31 Discharge Plan Discharge Patient Disposition: Home Clinical Impression: Abdominal pain Qualifiers: Abdominal location: unspecified location Qualified Code(s): R10.9 - Unspecified abdominal pain Condition: Stable Prescriptions: No Action albuterol sulfate [ProAir HFA] 90 mcg/actuation HFA aerosol inhaler 2 puff inhalation Q6H PRN (Reason: shortness of breath or wheezing) Qty: 8.5 0RF ondansetron HCl 4 mg tablet 4 mg PO Q8H PRN (Reason: Nausea And Vomiting) 0RF azithromycin 250 mg tablet See Rx Instructions PO .COMPLEX Qty: 6 0RF Rx Instructions: take 2 tablets today (day 1), then one tablet for 4 days (days 2-5) PO oseltamivir [Tamiflu] 75 mg capsule 75 mg PO BID 5 Days Qty: 10 0RF Rx Instructions: rx filled 10/25/21 5d/s quetiapine 25 mg Tablet 25 mg PO BEDTIME 0RF gabapentin 400 mg Capsule 400 mg PO BID 0RF propranolol 10 mg Tablet 10 mg PO BID 0RF omeprazole 20 mg Capsule,Delayed Release(Dr/Ec) 20 mg PO BID 0RF Zyrtec 10 mg Tablet 10 mg PO DAILY PRN (Reason: Allergy Symptoms) 0RF prednisone 20 mg Tablet 20 mg PO DAILY 0RF Rx Instructions: for 7 days (rx filled 10/30/21) diphenoxylate-atropine 2.5-0.025 mg tablet 2 tab PO Q6H PRN (Reason: Diarrhea) 0RF Vitamin C 500 mg Tablet 500 mg PO DAILY 0RF promethazine 25 mg tablet 25 mg PO Q4H PRN (Reason: Nausea) 0RF Bromfed DM 2-30-10 mg/5 mL Syrup 7.5 ml PO Q6H PRN (Reason: Cough) 0RF lisinopril 40 mg tablet 40 mg PO DAILY 0RF cyclobenzaprine 5 mg tablet 5 mg PO TID PRN (Reason: Muscle Spasm) 0RF tizanidine 2 mg tablet 4 mg PO Q8H PRN (Reason: muscle spasticity) 0RF Discharge Orders: Discharge ED (Routine); Ordered 11/01/21 Ordered By: Hanna Patel Discharge Diet: Advance as tolerated Discharge Activity: Resume usual activity Patient Instructions: Abdominal Pain (ED) Coding Level of Care Code ED Traffic Administrator for Chg Fwd Exam Comprehensive
[2021-11-01 18:10] LABS: Creatine Phosphokinase 427 U/L (39-308)
[2021-11-01 18:28] LABS: CKMB 7.7 ng/mL (0-10.4); CKMB Relative Index 1.8 % (0.0-5.3)
[2021-11-01 18:30] VITALS: RESP 18
[2021-11-01] MEDS: ondansetron 2 mg/ML SDV 2 mL 4 MG IVP (18:30)
[2021-11-01] MEDS: morphine 4 mg/mL SDV 1 mL IVP (18:30)
== END 2021-11-01 18:34 | disposition home or self-care (01) ==
PROVIDERS: Physician Assistant; Emergency Provider Emergency Medicine
DX: R10.9 Unspecified abdominal pain (principal); F17.210 Nicotine dependence, cigarettes, uncomplicated
CPT/HCPCS: 80053; 82550; 82553; 83690; 85025; 96374; 96375; 99284; J2270; J2405

== ENCOUNTER 2022-05-09 20:16 | Emergency (ER) | payer MEDICAID, SELFPAY ==
[2022-05-09 20:18] VITALS: BP 177/98; PULSE 102; RESP 20; TEMP 36.7; O2SAT 99
[2022-05-09 20:34] VITALS: BP 145/98; PULSE 84; RESP 16; O2SAT 99
--- NOTE | 2022-05-09 20:38 | W.ED.BACK ---
HPI - Back Pain/Injury General: Chief Complaint: Back Pain/Injury Stated Complaint: BACK PAIN Time Seen by Provider: 05/09/22 20:38 History of Present Illness: 21-year-old male patient comes in today for complaints of low back pain. Patient has a history of intervertebral disc disease with herniation L5-S1 with mild foraminal encroachment. Patient has a history of major depression and ADHD, GERD, asthma. Patient reports no new injury. Patient came in today due to inability to manage pain at home. Patient is tearful on exam. Patient denies fever or loss of bowel or bladder control. Review of Systems General: Reports: 10 or more systems reviewed and unremarkable except in HPI and below Musc: Reports: back pain PFSH ED PFSH: Medical History Acute kidney injury ADHD Asthma Chronic back pain greater than 3 months duration GERD with apnea Hyperkalemia Major depression Mild intermittent asthma with (acute) exacerbation Nausea and vomiting Rhabdomyolysis Smoking Surgical History No pertinent past surgical history Social History Smoking and tobacco status: current every day smoker cigarettes Packs smoked per day: 1 Quit status (tobacco): not considering quitting Second hand smoke exposure: Yes Alcohol intake: never Desire information about alcohol rehabilitation?: No Desire information about substance/drug rehabilitation?: No History of recent travel: No Current gender identity: Male Physical Exam Const: COMMON NORMALS: alert HENMT: COMMON NORMALS: normocephalic HEAD & SCALP: normocephalic Neck/C-Spine: COMMON NORMALS: full ROM Resp: COMMON NORMALS: normal respiratory effort Back/Pelvis: LUMBAR SPINE/LOWER BACK: No lumbar spinal tenderness and Yes paraspinal muscle tenderness Extremity: COMMON NORMALS: normal to inspection Neuro: SENSORIUM/ORIENTATION: Yes alert Skin: COMMON NORMALS: turgor normal GENERAL SKIN EXAM: turgor normal Course Vital Signs: Vital signs: Vital Signs Temperature 98.1 F 05/09/22 20:18 Pulse Rate 84 05/09/22 20:34 Respiratory Rate 18 05/09/22 20:45 Blood Pressure 145/98 05/09/22 20:34 Pulse Oximetry 99 05/09/22 20:34 Oxygen Delivery Me thod 05/09/22 20:34 MDM - Back Pain/Injury Medical Decision Making 21-year-old male patient comes in today for complaints of low back pain. Patient has chronic back pain but has an exacerbation of his pain. Patient denies any loss of bowel or bladder control. Patient appears nontoxic. Differential diagnosis includes intervertebral disc disease, facet arthropathy, lumbar strain. Feel the patient probably has an exacerbation of his chronic pain. Patient was given 4 of morphine and 30 mg of ketorolac. Patient be continued on diclofenac with short burst of hydrocodone. Patient was recommended to follow-up with orthospine for further evaluation and consideration of surgical treatment. Patient reported understanding and agreed to plan. Case management was requested to help with referral to orthospine. Discharge Plan Discharge Patient Disposition: Home Clinical Impression: Intervertebral disc disease Condition: Stable Prescriptions: New hydrocodone-acetaminophen 5-325 mg tablet 1 tab PO Q8H PRN (Reason: pain (scale score 7-10)) Qty: 15 0RF diclofenac sodium 75 mg tablet,delayed release (DR/EC) 75 mg PO BID Qty: 20 0RF No Action prednisone 20 mg tablet 40 mg PO DAILY 5 Days Qty: 10 0RF quetiapine 25 mg Tablet 25 mg PO BEDTIME gabapentin 400 mg Capsule 400 mg PO BID propranolol 10 mg Tablet 10 mg PO BID omeprazole 20 mg Capsule,Delayed Release(Dr/Ec) 20 mg PO BID Zyrtec 10 mg Tablet 10 mg PO DAILY PRN (Reason: Allergy Symptoms) Vitamin C 500 mg Tablet 500 mg PO DAILY promethazine 25 mg tablet 25 mg PO Q4H PRN (Reason: Nausea) lisinopril 40 mg tablet 40 mg PO DAILY cyclobenzaprine 5 mg tablet 5 mg PO TID PRN (Reason: Muscle Spasm) Discharge Orders: Discharge ED (Routine); Ordered 05/09/22 Ordered By: Olman Paz Discharge Diet: Usual diet Discharge Activity: Increase activity as tolerated Patient Instructions: Opioid Safety, Pain Management Activity Restrictions/Additional Instructions: Use medication as directed. Limit the use of narcotics to prevent dependence. Take diclofenac 75 mg twice a day routinely for pain and inflammation. Use acetaminophen for further pain control. Use hydrocodone for severe pain. Follow-up with primary care in 5 days for recheck. Return to ED for fever greater than 100.4, inability to hold down fluids, loss of bowel or bladder control. Coding Level of Care Code ED Technical Sales Representative for Maddy Card
[2022-05-09 20:45] VITALS: RESP 18
[2022-05-09] MEDS: morphine 4 mg/mL SDV 1 mL IM (20:45)
[2022-05-09] MEDS: ketorolac 30 mg/mL INJ IM (20:45)
--- NOTE | 2022-05-10 09:23 | DCPLANNER ---
Addendum entered by Edna Roy 05/18/22 11:11: Patient had a follow up appointment scheduled with ortho - patient did attend appointment. Addendum entered by Edna Roy 05/10/22 11:12: Patient has a follow up appointment scheduled for May at 8:[address] Fleming at ortho. Clinic will call patient with appointment information. Original Note: concierge manager had message to schedule a follow up appointment for patient with ortho. concierge manager sent patients information to the front office staff at ortho. Patients information will be printed and reviewed. Clinic will call patient with appointment information.
== END 2022-05-09 20:54 | disposition home or self-care (01) ==
PROVIDERS: Emergency Provider Nurse Practitioner Family
DX: M51.9 Unspecified thoracic, thoracolumbar and lumbosacral intervertebral disc disorder (principal); F17.210 Nicotine dependence, cigarettes, uncomplicated
CPT/HCPCS: 96372; 99284; J1885; J2270

== ENCOUNTER → 2022-05-17 08:41 | Outpatient (BNVA) | payer MEDICAID, SELFPAY | PROVIDERS: Visit Provider Orthopaedic Surgery | DX: M51.27 Other intervertebral disc displacement, lumbosacral region (principal); M51.37 Other intervertebral disc degeneration, lumbosacral region | CPT/HCPCS: 72110 ==

== ENCOUNTER → 2022-06-26 11:21 | Outpatient (BNVA) | payer MEDICAID, SELFPAY | PROVIDERS: Visit Provider Emergency Medicine | DX: M25.552 Pain in left hip (principal); W00.0XXA Fall on same level due to ice and snow, initial encounter | CPT/HCPCS: 73502 ==

== ENCOUNTER 2022-07-03 15:00 | Emergency (ER) | payer MEDICAID, SELFPAY ==
[2022-07-03 15:21] VITALS: BP 148/74; PULSE 89; RESP 20; TEMP 36.2; O2SAT 99
--- NOTE | 2022-07-03 17:07 | XRR_ITS ---
PROCEDURE INFORMATION: Exam: XR Lumbosacral Spine Exam date and time: 07/03/2022 5:26 PM Age: 21 years old Clinical indication: Low back pain; Patient HX: Patient states he has had 5 herniated discs in the past; Additional info: Back pain, fall on ice 3 weeks. TECHNIQUE: Imaging protocol: Radiologic exam of the lumbosacral spine. Views: 2 or 3 views. COMPARISON: MR lumbar spine wo con* [id number] 06/09/2022 2:58 PM FINDINGS: Bones/joints: Minimal L5-S1 disc space height loss is unchanged with the comparison MRI. No acute fracture. Normal alignment. Soft tissues: Unremarkable. XR/XR lumbar spine 2-3V* [id number] IMPRESSION: Minimal L5-S1 degenerative disc disease is unchanged. No acute osseous injury.
--- NOTE | 2022-07-03 17:10 | ED_ITS ---
Documented by User: GERA Armstrong 07/03/22 17:13 HPI - Back Pain/Injury General: Chief Complaint: Back Pain/Injury Stated Complaint: low back pain Time Seen by Provider: 07/03/22 17:13 History of Present Illness: She is in today for low back pain. He reports that he has chronic back pain and herniated disc. He reports that he has had an MRI also seen Dr. Fleming. He reports that 3 weeks ago he did have a fall on the ice that his back pain has been worse since that time. He does offer that he has chronic numbness and tingling of the groin and bilateral inner thighs. He reports that this numbness and tingling is worse over the past 3 days. He reports some nausea. He reports feeling feverish but has not measured his temperature. He states that he went to [facility] today and then went to [place] [facility] but the wait was going to be 17 hours so he drove all the way back to [facility] to be seen in the ER. Associated symptoms: Reports chills, fever(s) and nausea; Deny abdominal pain, dysuria, urinary urgency or vomiting Review of Systems Const: Reports: fever(s) and chills Card: Denies: chest pain or palpitations Resp: Denies: dyspnea, productive cough or non-productive cough GI: Reports: nausea; Denies: abdominal pain or vomiting : Denies: flank pain, difficulty urinating, dysuria, urinary frequency or urinary urgency Musc: Reports: back pain PFSH ED PFSH: Medical History Acute kidney injury ADHD Asthma Chronic back pain greater than 3 months duration GERD with apnea Hyperkalemia Major depression Mild intermittent asthma with (acute) exacerbation Nausea and vomiting Rhabdomyolysis Smoking Surgical History No pertinent past surgical history Social History Smoking and tobacco status: current every day smoker cigarettes Packs smoked per day: 1 Quit status (tobacco): not considering quitting Second hand smoke exposure: Yes Alcohol intake: never Desire information about alcohol rehabilitation?: No Desire information about substance/drug rehabilitation?: No Current gender identity: Male Physical Exam Const: COMMON NORMALS: patient oriented x3 and alert OTHER: Patient is quiet in the chair in vertical flow but starts moaning and fidgeting when staff is present in the room Neck/C-Spine: COMMON NORMALS: no JVD Resp: COMMON NORMALS: normal respiratory effort, No use of accessory muscles and clear to auscultation bilaterally AUSCULTATION: clear to auscultation bilaterally Cardio: COMMON NORMALS: no JVD, regular rate, regular rhythm, S1 normal heart sound present, S2 normal heart sound present and No murmurs present (Cardio) RATE: regular rate RHYTHM: regular rhythm HEART SOUNDS: S1 normal heart sound present and S2 normal heart sound present : COMMON NORMALS: Yes no CVA tenderness BLADDER/KIDNEY EXAM: Yes no CVA tenderness Back/Pelvis: COMMON NORMALS: no CVA tenderness and thoracic and lumbar spine normal to inspection OTHER: Patient is walking stiff gait forward flexed. No lumbar vertebral point tenderness. Neuro: COMMON NORMALS: patient oriented x3 SENSORIUM/ORIENTATION: Yes alert Course ED course: Care of patient signed over to Félix Smyth as my shift is ending. Vital Signs: Vital signs: Vital Signs Temperature 97.2 F L 07/03/22 15:21 Pulse Rate 89 07/03/22 15:21 Respiratory Rate 20 H 07/03/22 15:21 Blood Pressure 148/74 07/03/22 15:21 Pulse Oximetry 99 07/03/22 15:21 Oxygen Delivery Me thod 07/03/22 15:21 MDM - Back Pain/Injury Labs Radiology Impressions Lumbar Spine X-Ray 07/03/22 17:07 IMPRESSION: Minimal L5-S1 degenerative disc disease is unchanged. No acute osseous injury. Laboratory Results Urine Color Yellow (Yellow) 07/03/22 18:02 Urine Appearance Clear (CLEAR) 07/03/22 18:02 Urine pH 5 (5-7) 07/03/22 18:02 Ur Specific [place] 1.025 (1.005-1.030) 07/03/22 18:02 Urine Protein Neg (Negative) 07/03/22 18:02 Urine Glucose (UA) Norm (Normal) 07/03/22 18:02 Urine Ketones Negative (Negative) 07/03/22 18:02 Urine Blood Neg (Negative) 07/03/22 18:02 Urine Nitrate Negative (Negative) 07/03/22 18:02 Urine Bilirubin 1+ (Negative) H 07/03/22 18:02 Urine Urobilinogen 8 mg/dL (Negative) H 07/03/22 18:02 Ur Leukocyte Esterase Negative (Negative) 07/03/22 18:02 Discharge Plan Discharge Patient Disposition: Home Clinical Impression: Chronic back pain greater than 3 months duration Condition: Stable Prescriptions: No Action methocarbamol 750 mg tablet 750 mg PO TID 5 Days Qty: 15 0RF prednisone 10 mg tablet 30 mg PO DAILY 5 Days Qty: 15 0RF quetiapine 25 mg Tablet 25 mg PO BEDTIME gabapentin 400 mg Capsule 400 mg PO BID propranolol 10 mg Tablet 10 mg PO BID omeprazole 20 mg Capsule,Delayed Release(Dr/Ec) 20 mg PO BID Zyrtec 10 mg Tablet 10 mg PO DAILY PRN (Reason: Allergy Symptoms) Vitamin C 500 mg Tablet 500 mg PO DAILY promethazine 25 mg tablet 25 mg PO Q4H PRN (Reason: Nausea) lisinopril 40 mg tablet 40 mg PO DAILY cyclobenzaprine 5 mg tablet 5 mg PO TID PRN (Reason: Muscle Spasm) hydrocodone-acetaminophen 5-325 mg tablet 1 tab PO Q8H PRN (Reason: pain (scale score 7-10)) Qty: 15 0RF diclofenac sodium 75 mg tablet,delayed release (DR/EC) 75 mg PO BID Qty: 20 0RF Discharge Orders: Discharge ED (Routine); Ordered 07/03/22 Ordered By: Félix Smyth Discharge Diet: Regular Discharge Activity: Resume usual activity Patient Instructions: Back Pain (ED), Opioid Safety Activity Restrictions/Additional Instructions: Follow-up with Dr. Fleming at your next scheduled appointment. Take medications as prescribed. Return to the ER or your medical provider if condition worsens. Please read and understand discharge instructions. Thank you for choosing [facility] for your healthcare needs today. Please realize this is an emergency room and that we are providing you with a medical screening exam and this may not be complete and all inclusive of all the testing and or work up that you may need to determine your ailment or severity of your illness. It is very important that you follow up as instructed or that you return to the Emergency Department should you have concerns or if your condition changes or worsens in any way. Sign Out Sign Out Data: Patient Sign Out occurred on 07/03/22 at 17:19. Patient's care was discussed, and care was transferred from to BABITA Maddox. Coding Level of Care Code ED Coffee Brewer for Chg Fwd Documented by User: BABITA Maddox 07/03/22 23:21 HPI - Back Pain/Injury General: Chief Complaint: Back Pain/Injury Stated Complaint: low back pain Time Seen by Provider: 07/03/22 17:13 History of Present Illness: Patient is a 21-year-old male who comes to the ED with low back pain. He reports that he has chronic back pain and herniated disc. He reports that he has had an MRI also seen Dr. Fleming. He reports that 3 weeks ago he did have a fall on the ice that his back pain has been worse since that time. He does offer that he has chronic numbness and tingling of the groin and bilateral inner thighs. He reports that this numbness and tingling is worse over the past 3 days. He reports some nausea. He reports feeling feverish but has not measured his temperature. He states that he went to [facility] today and then went to [facility] but the wait was going to be 17 hours so he drove all the way back to [facility] to be seen in the ER. [facility] ED PFSH: Medical History Acute kidney injury ADHD Asthma Chronic back pain greater than 3 months duration GERD with apnea Hyperkalemia Major depression Mild intermittent asthma with (acute) exacerbation Nausea and vomiting Rhabdomyolysis Smoking Surgical History No pertinent past surgical history Social History Smoking and tobacco status: current every day smoker cigarettes Packs smoked per day: 1 Quit status (tobacco): not considering quitting Second hand smoke exposure: Yes Alcohol intake: never Desire information about alcohol rehabilitation?: No Desire information about substance/drug rehabilitation?: No Current gender identity: Male Course Vital Signs: Vital signs: Vital Signs Temperature 97.2 F L 02/21/23 15:21 Pulse Rate 89 07/03/22 15:21 Respiratory Rate 20 H 07/03/22 15:21 Blood Pressure 148/74 07/03/22 15:21 Pulse Oximetry 99 07/03/22 15:21 Oxygen Delivery Me thod 07/03/22 15:21 MDM - Back Pain/Injury Medical Decision Making Patient is a 21-year-old male comes to the ED with chronic lower back pain. He endorses having some pain radiating down his legs and states that he did have a fall on the ice approximately 3 weeks ago. Patient has seen Dr. Fleming back on June 04, 2022 and he is currently in the process of getting patient set up with an outpatient MRI of lumbar spine. Patient appears nontoxic and in no acute distress. He is ambulating with minimal difficulty. Rest of exam is benign. UA is unremarkable. Lumbar spine x-ray shows L5-S1 degenerative disc disease that is unchanged but no acute osseous injury noted. Patient was given a dose of Decadron and hydrocodone here in the ED. He was stable for discharge home and diagnosed with chronic back pain. Told to follow-up with Dr. Fleming at next appointment. He was sent home with a prescription for couple hydrocodone. Return to ED precautions given. Patient understood and agreed with plan. Labs I reviewed the patient's lab results. Radiology Impressions Lumbar Spine X-Ray 07/03/22 17:07 IMPRESSION: Minimal L5-S1 degenerative disc disease is unchanged. No acute osseous injury. Laboratory Results Urine Color Yellow (Yellow) 07/03/22 18:02 Urine Appearance Clear (CLEAR) 07/03/22 18:02 Urine pH 5 (5-7) 07/03/22 18:02 Ur Specific [place] 1.025 (1.005-1.030) 07/03/22 18:02 Urine Protein Neg (Negative) 07/03/22 18:02 Urine Glucose (UA) Norm (Normal) 07/03/22 18:02 Urine Ketones Negative (Negative) 07/03/22 18:02 Urine Blood Neg (Negative) 07/03/22 18:02 Urine Nitrate Negative (Negative) 07/03/22 18:02 Urine Bilirubin 1+ (Negative) H 07/03/22 18:02 Urine Urobilinogen 8 mg/dL (Negative) H 07/03/22 18:02 Ur Leukocyte Esterase Negative (Negative) 07/03/22 18:02 Discharge Plan Discharge Patient Disposition: Home Clinical Impression: Chronic back pain greater than 3 months duration Condition: Stable Prescriptions: No Action methocarbamol 750 mg tablet 750 mg PO TID 5 Days Qty: 15 0RF prednisone 10 mg tablet 30 mg PO DAILY 5 Days Qty: 15 0RF quetiapine 25 mg Tablet 25 mg PO BEDTIME gabapentin 400 mg Capsule 400 mg PO BID propranolol 10 mg Tablet 10 mg PO BID omeprazole 20 mg Capsule,Delayed Release(Dr/Ec) 20 mg PO BID Zyrtec 10 mg Tablet 10 mg PO DAILY PRN (Reason: Allergy Symptoms) Vitamin C 500 mg Tablet 500 mg PO DAILY promethazine 25 mg tablet 25 mg PO Q4H PRN (Reason: Nausea) lisinopril 40 mg tablet 40 mg PO DAILY cyclobenzaprine 5 mg tablet 5 mg PO TID PRN (Reason: Muscle Spasm) hydrocodone-acetaminophen 5-325 mg tablet 1 tab PO Q8H PRN (Reason: pain (scale score 7-10)) Qty: 15 0RF diclofenac sodium 75 mg tablet,delayed release (DR/EC) 75 mg PO BID Qty: 20 0RF Discharge Orders: Discharge ED (Routine); Ordered 07/03/22 Ordered By: Félix Smyth Discharge Diet: Regular Discharge Activity: Resume usual activity Patient Instructions: Back Pain (ED), Opioid Safety Activity Restrictions/Additional Instructions: Follow-up with Dr. Fleming at your next scheduled appointment. Take medications as prescribed. Return to the ER or your medical provider if condition worsens. Please read and understand discharge instructions. Thank you for choosing [facility] for your healthcare needs today. Please realize this is an emergency room and that we are providing you with a medical screening exam and this may not be complete and all inclusive of all the testing and or work up that you may need to determine your ailment or severity of your illness. It is very important that you follow up as instructed or that you return to the Emergency Department should you have concerns or if your condition changes or worsens in any way. Sign Out Sign Out Data: Patient Sign Out occurred on 07/03/22 at 17:19. Patient's care was discussed, and care was transferred from to BABITA Maddox. Coding Level of Care Code ED Coffee Brewer for Maddy Card
[2022-07-03] MEDS: HYDROcodone-acetaminophen 5-325 mg Tablet 1 TAB PO (17:20)
[2022-07-03 18:12] LABS: Add Urine Microscopic? NO; Charge for UA Resulting for Rev
[2022-07-03] MEDS: dexamethasone 10 mg/mL INJ IM (18:40)
[2022-07-03 18:44] LABS: Bilirubin Urine 1+ (Negative); Blood Urine Neg (Negative); Glucose Urine UA Norm (Normal); Ketones Urine Negative (Negative); Leukocyte Esterase Urine Negative (Negative); Nitrate Urine Negative (Negative); Protein Urine Neg (Negative); Specific Gravity, Urine 1.025 (1.005-1.030); Urine Appearance Clear (CLEAR); Urine Color Yellow (Yellow); Urobilinogen Urine 8 mg/dL (Negative); pH Urine 5 (5-7)
== END 2022-07-03 18:39 | disposition home or self-care (01) ==
PROVIDERS: Nurse Practitioner Family; Emergency Provider Physician Assistant
DX: G89.29 Other chronic pain (principal); M54.50 Low back pain, unspecified; M51.37 Other intervertebral disc degeneration, lumbosacral region; F17.210 Nicotine dependence, cigarettes, uncomplicated
CPT/HCPCS: 72100; 81003; 96372; 99284; J1100

== ENCOUNTER 2022-07-23 06:36 | Day surgery (SDC) | payer MEDICAID, SELFPAY ==
[2022-07-20 08:10] VITALS: BMI 29.9
--- NOTE | 2022-07-20 09:17 | ANES.PREANE2 ---
Pre-Anesthetic Assessment Height/Weight: Height 1.8 m Weight 97.522 kg Operation Date: 07/23/22 08:40 Proposed Procedures p Discectomy:L5/S1 70951,M54.17,M51.27(Left) - Edwardo Fleming DO Familial anesthetic complications: Family hx PONV Social Tobacco and No alcohol Exam alert, oriented x 3, clear to auscultation bilaterally and regular rate & rhythm Airway Mallampati: Class III Dentition: full Pulmonary Asthma CV/HEM Hypertension None reported Hepatic None reported GI Gastroesophageal Reflux Disease Metabolic None reported Musc/skel Lower Back Pain Neuropsych None reported Anesthetic Plan ASA status: 2 Anesthesia: General Risk of > 500 ml blood loss (7ml/kg in children): No Medications/Allergies Home Medications Medication Instructions Recorded Confirmed Last Taken Type gabapentin 400 mg capsule 400 mg PO BID 10/31/21 07/20/22 Unknown History lisinopril 40 mg tablet 40 mg PO DAILY 11/01/21 07/20/22 Unknown History hydrocodone 5 mg-acetaminophen 325 1 tab PO Q8H PRN pain (scale score 05/09/22 07/20/22 Unknown Rx mg tablet 7-10) #15 tabs methocarbamol 750 mg tablet 750 mg PO PRN 07/20/22 07/20/22 Unknown History Allergies Allergy/AdvReac Type Severity Reaction Status Date / Time tramadol Allergy hives Verified 07/10/22 07:59 PFSH Anesthesia Medical History Acute kidney injury ADHD Asthma Chronic back pain greater than 3 months duration GERD with apnea Hyperkalemia Major depression Mild intermittent asthma with (acute) exacerbation Nausea and vomiting Rhabdomyolysis Smoking Surgical History No pertinent past surgical history Social History Smoking and tobacco status: current every day smoker cigarettes Packs smoked per day: 1 Quit status (tobacco): not considering quitting Second hand smoke exposure: Yes Alcohol intake: never Desire information about alcohol rehabilitation?: No Desire information about substance/drug rehabilitation?: No Current gender identity: Male Data Anesthesia Cardiac Studies: No Data to Display
[2022-07-23] VITALS (16 sets, daily range): BP systolic 143–170; BP diastolic 86–112; PULSE 82–99; RESP 14–22; TEMP 36.3–36.9; O2SAT 95–99
--- NOTE | 2022-07-23 | XR_ITS ---
WS: [id number] XR lumbar spine 1V [id number] REASON FOR EXAM: OR PICS FINDINGS: Surgical device overlying the left L5-S1 disc space. XR/XR lumbar spine 1V [id number] IMPRESSION: Lumbar localization during surgery as above.
[2022-07-23] MEDS: ondansetron 2 mg/ML SDV 2 mL 4 MG IVP (07:41)
[2022-07-23] MEDS: sodium chloride 0.9% 1,000 ML 30 ML IV (07:42)
[2022-07-23] MEDS: scopolamine 1.5 Patch 1 PATCH TRANSDERMA (07:42)
[2022-07-23] MEDS: fentaNYL 50 mcg/mL INJ 2mL IVP ×2 (08:06→10:50)
--- NOTE | 2022-07-23 08:06 | P.ANESUD_ITS ---
Pre-Anesthetic Update Pre-Anesthetic Assessment: Date of Surgery/Procedure: 07/23/22 Preop Jackeline gnosis: HNP L5-S1, Lumbar radiculopathy Proposed Procedure: Operation Date: 07/23/22 08:40 Proposed Procedures p Discectomy:L5/S1 88743,M54.17,M51.27(Left) - Edwardo Fleming, DO Any changes to Pre-Anesthetic Assessment?: No Last Intake: Intake Last Liquid Date 07/22/22 Last Liquid Time 23:50 Last Solid Date 07/22/22 Last Solid Time 22:00 Vitals: Temperature 97.6 F 07/23/22 07:52 Temperature Source Temporal Artery S can 07/23/22 07:52 Pulse Rate 84 07/23/22 07:52 Pulse Rhythm 07/23/22 07:46 Pulse Strength 3+ Normal 07/23/22 07:46 Respiratory Rate 18 07/23/22 07:52 Blood Pressure 143/87 07/23/22 07:52 Blood Pressure Yana n 105 07/23/22 07:52 Pulse Oximetry 97 07/23/22 07:52 Oxygen Delivery Me thod 07/23/22 07:52 Exam: Pre-Anes Outpt Exam: alert, oriented x 3, clear to auscultation bilaterally and regular rate & rhythm Cardiac Studies: No Data to Display
--- NOTE | 2022-07-23 08:38 | W.PM.OPSUD ---
Surgery/Procedure H&P Update DATE OF PROCEDURE: July 23, 2022 DATE H&P PERFORMED: 07/10/22 H&P UPDATE INFORMATION: I have reviewed H&P completed within last 30 days, I have examined patient prior to procedure and No changes to prior documentation PREOP DIAGNOSIS: HNP L5-S1, Lumbar radiculopathy PLANNED PROCEDURE: Operation Date: 07/23/22 08:40 Proposed Procedures p Discectomy:L5/S1 97008,M54.17,M51.27(Left) - Edwardo Fleming DO
[2022-07-23] MEDS: ceFAZolin 2,000 MG in sodium chloride 0.9% (plus) 50 ML 100 MG IV (08:49)
[2022-07-23] MEDS: lidocaine-epi 1% 20 mL INJ INJECTION (09:20)
--- NOTE | 2022-07-23 10:32 | P.OP_ITS ---
Operative Report Date of procedure: July 23, 2022 Pre-op diagnosis: Preop Diagnosis HNP L5-S1, Lumbar radiculopathy Post-op diagnosis: same Procedure done: 1. L5/S1 laminectomy with partial facetectomy and diskectomy Surgeon: Edwardo Fleming Estimated blood loss (mL): 15 Procedure: 1. L5/S1 laminectomy with partial facetectomy and diskectomy Patient is brought to the operative suite. After undergoing anesthesia they are placed in the prone position. All areas of impingement are well padded. Patient is then prepped and draped in the normal sterile fashion. A skin incision is made over the L5/S1 level. This is confirmed under c-arm guidance. A series of dilators are passed and the tubular retractor is docked on the L5 lamina. A bovie is used to clear the soft tissue off the lamina and the L5/S1 facet joint. A high speed orin is then used to perform the laminectomy and take down the medial aspect of the L5/S1 facet joint. A kerrison rongeure was then used to take down the remaining lamina and smooth the edge of the laminectomy up to the point where the ligamentum flavum attaches. Attention was then brought to the medial aspect of the facet joint. The remaining medial aspect of the superior and inferior aspect of the facet joint were taken down with the kerrison from the pedicle of L5 to S1. The facet joint had significant hypertrophy. Attention was then brought to the Ligamentum Flavum. The ligament was taken down from the lamina of L5 to S1 and out medially to the remaining facet joint. The ligament was thick. The dura was then exposed. The dura was in good repair . S1 nerve was retracted and large disk fragments were removed The L nerve was then traced with a curette out the L5 foramen and found to be adequately decompressed. The S1 nerve was traced with a curette around the S1 pedicle. The lateral recess was opened with a kerrison helping to further decompress the S1 nerve. Wound is then irrigated copiously with saline and surgiflo is used to stop any bleeding. The tubular retractor is removed and the wound is closed with vicryl and monocryl suture. Glue is then used to protect the wound. A sterile dressing is then placed. Patient was then placed in the supine position and transferred to the PACU in stable condition.
[2022-07-23] MEDS: hyDRALAzine 20 mg/mL INJ 1 mL (11:06)
--- NOTE | 2022-07-23 11:29 | SUR.PHASEII ---
11:25 PT REVIEWED WITH DOCTOR JORDAN. IV PAIN MED GIVEN.
[2022-07-23] MEDS: HYDROmorphone 1 mg/mL INJ 1 mL 0.5 MG IVP (11:33)
[2022-07-23] MEDS: HYDROcodone-acetaminophen 5-325 mg Tablet 2 TAB PO (11:48)
--- NOTE | 2022-07-23 16:56 | ANE.PACU2 ---
Inpatient post-anesthesia follow up: Airway intact: Yes Vital signs: Temperature 98.5 F Pulse Rate 88 Respiratory Rate 16 Blood Pressure 158/98 Pulse Oximetry 98 Oxygen Delivery Me thod Room Air Oxygen Flow Rate 6 Fraction of Inspir ed Oxygen Hydration adequate: Yes Nausea and vomiting: No Pain level: 3 Mental status: Baseline
== END 2022-07-23 11:55 | disposition home or self-care (01) ==
PROVIDERS: Visit Provider Orthopaedic Surgery
PROC: (CPT 63030; principal; 2022-07-23 08:30)
DX: M51.17 Intervertebral disc disorders with radiculopathy, lumbosacral region (principal); I10 Essential (primary) hypertension; K21.9 Gastro-esophageal reflux disease without esophagitis; J45.20 Mild intermittent asthma, uncomplicated; F17.210 Nicotine dependence, cigarettes, uncomplicated; Z88.5 Allergy status to narcotic agent
CPT/HCPCS: 63030; 72020; 76000; J0360; J0690; J1100; J1170; J1885; J2250; J2405; J2704; J2710; J3010; J3490; J7030

== ENCOUNTER 2022-10-21 15:35 | Emergency (ER) | payer MEDICAID, SELFPAY ==
[2022-10-21 16:06] VITALS: BP 142/89; PULSE 86; RESP 18; TEMP 36.7; O2SAT 98; BMI 32.9
--- NOTE | 2022-10-21 16:24 | W.ED.BACK ---
HPI - Back Pain/Injury General: Chief Complaint: Back Pain/Injury Stated Complaint: Lower back pain Time Seen by Provider: 10/21/22 16:14 Source: patient Mode of arrival: ambulatory Limitations: no limitations History of Present Illness: 22-year-old male with a history of chronic back pain presents to the ER today for worsening pain and being out of pain medications. Patient reports he had surgery in July and has been taking the same hydrocodone since then. Patient reports he kind of reinjured his back at work in the last month or so and is set to see pain management on Saturday. He ran out of hydrocodone in the last couple of days and the pain has been excruciating. Patient is taking [id number] meds with no improvement. Patient reports no loss of bowel or bladder control. Nothing is new since the recent injury. Review of Systems General: Reports: 10 or more systems reviewed and unremarkable except in HPI and below PFSH ED PFSH: Medical History Acute kidney injury ADHD Asthma Chronic back pain greater than 3 months duration GERD with apnea Hyperkalemia Major depression Mild intermittent asthma with (acute) exacerbation Nausea and vomiting Rhabdomyolysis Smoking Surgical History No pertinent past surgical history Social History Smoking and tobacco status: current every day smoker cigarettes Packs smoked per day: 1 Quit status (tobacco): not considering quitting Second hand smoke exposure: Yes Alcohol intake: never Desire information about alcohol rehabilitation?: No Substance/Drug Use: never Desire information about substance/drug rehabilitation?: No Current gender identity: Male Physical Exam Const: COMMON NORMALS: no acute distress, average body habitus, patient oriented x3, no limitations, healthy appearing, alert and well nourished Resp: COMMON NORMALS: normal respiratory effort EFFORT & INSPECTION: Yes able to speak in complete sentences Cardio: COMMON NORMALS: regular rate and regular rhythm RATE: regular rate RHYTHM: regular rhythm Back/Pelvis: OTHER: Chronic back discomfort, nothing acute, no muscle spasms. Extremity: COMMON NORMALS: normal to inspection, full ROM and no pedal edema Neuro: COMMON NORMALS: patient oriented x3 SENSORIUM/ORIENTATION: Yes alert Psych: COMMON NORMALS: mental status grossly normal, Normal thought process present and cooperative THOUGHT PROCESS: Normal thought process present Skin: COMMON NORMALS: no rashes or lesions noted and no wounds GENERAL SKIN EXAM: no rashes or lesions noted Course ED course: Patient presents to the ER for back pain and being out of pain medication. Patient sees pain management on Saturday. He had back surgery in July and has used the hydrocodone he was given at that time since. Patient did reinjure his back at work in the last month or so and that is why he is seeing pain management. Vital Signs: Vital signs: Vital Signs Temperature 98.1 F 10/21/22 16:06 Pulse Rate 86 10/21/22 16:06 Respiratory Rate 18 10/21/22 16:06 Blood Pressure 142/89 10/21/22 16:06 Pulse Oximetry 98 10/21/22 16:06 Oxygen Delivery Me thod Room Air 10/21/22 16:06 MDM - Back Pain/Injury Medical Decision Making None patient symptoms are new at this time. No loss of bowel or bladder control or signs of neurological impairment. We will refill patient's pain medication for the next 2 days until he sees pain management. He must see pain management for any future pain control. Patient verbalized understanding and was in agreement with the treatment plan. Critical Care Time Critical Care Time: Critical Care Time: No Discharge Plan Discharge Patient Disposition: Home Clinical Impression: Chronic back pain Qualifiers: Back pain location: low back pain Back pain laterality: unspecified Sciatica presence: without sciatica Qualified Code(s): M54.50 - Low back pain, unspecified Condition: Stable Prescriptions: New hydrocodone-acetaminophen 5-325 mg tablet 1 tab PO Q8H PRN (Reason: pain) 2 Days Qty: 6 0RF No Action prednisone 20 mg tablet 60 mg PO DAILY 5 Days Qty: 15 0RF famotidine [Pepcid] 40 mg tablet 40 mg PO BID 5 Days Qty: 10 0RF hydrocodone-acetaminophen 5-325 mg tablet 1 - 2 tab PO .Q4-6H PRN (Reason: Post-op pain) 5 Days Qty: 40 0RF gabapentin 400 mg Capsule 400 mg PO BID lisinopril 40 mg tablet 40 mg PO DAILY methocarbamol 750 mg tablet 750 mg PO PRN Discharge Orders: Discharge ED (Routine); Ordered 10/21/22 Ordered By: Jacey Oconnor Discharge Diet: Usual diet Discharge Activity: Limit activity as instructed Patient Instructions: Opioid Safety, Pain Management Activity Restrictions/Additional Instructions: I would advise you to not work and to follow-up with pain management to avoid further injuring back. Take hydrocodone only as prescribed. Continue [id number] medications and muscle relaxer as previously prescribed. Follow-up with pain management on Saturday. Coding Level of Care Code ED [employer]
--- NOTE | 2022-10-25 13:04 | DCPLANNER ---
[employer] was triggered to call patient due to no primary care physician - patient has an appointment to establish with Dr. Oro scheduled.
== END 2022-10-21 16:55 | disposition home or self-care (01) ==
PROVIDERS: Emergency Provider Physician Assistant
DX: M54.50 Low back pain, unspecified (principal); G89.29 Other chronic pain; Z76.0 Encounter for issue of repeat prescription
CPT/HCPCS: 99283

== ENCOUNTER → 2023-01-21 11:10 | Outpatient (BNVA) | payer MEDICAID, SELFPAY | PROVIDERS: Visit Provider Nurse Practitioner Family | DX: R10.9 Unspecified abdominal pain (principal) | CPT/HCPCS: 80074 ==

== ENCOUNTER → 2023-02-09 12:20 | Outpatient (BNVA) | payer MEDICAID, SELFPAY | PROVIDERS: Visit Provider Emergency Medicine | DX: R68.89 Other general symptoms and signs (principal); R11.0 Nausea; B34.9 Viral infection, unspecified | CPT/HCPCS: 87400; 87426 ==

== ENCOUNTER → 2024-02-20 14:50 | Outpatient (BNVA) | payer MEDICAID, SELFPAY | PROVIDERS: Visit Provider Orthopaedic Surgery | DX: M54.9 Dorsalgia, unspecified (principal); G89.29 Other chronic pain; M51.27 Other intervertebral disc displacement, lumbosacral region; M54.17 Radiculopathy, lumbosacral region | CPT/HCPCS: 72100 ==